=== PATIENT | female | born 1970 | race Caucasian/White ===

== ENCOUNTER → 2017-07-12 | Outpatient (CLI) | payer MEDICARE, OTHER ==
[~2017-07-12] MED LIST: Clomipramine HC50 MG PO; DIPATR PO; ERYT.5TO RIGHTEYE; ESZO2 PO; FLUV50 PO; Fluvoxamine Ma100 MG PO; HYDCOR2.5A PR; OMEP20ER PO; OMEPRAZOLE 20MG CAP; ONDA4ODT MM; RANI150 PO; TERB250 PO; TRAM50 PO
[2017-07-13 12:58] LABS: HPV Genotype 16 Not Detected (NOTDET); HPV Genotype 18 Not Detected (NOTDET)
[2017-07-15 12:30] LABS: HPV High Risk Other Not Detected (NOTDET)
== END ==
LOC: LAB 09:59
PROVIDERS: Registered Nurse Community Health
DX: Z12.4 Encounter for screening for malignant neoplasm of cervix (principal)
CPT/HCPCS: 87624; G0123

== ENCOUNTER 2018-01-24 21:04 | Emergency (ER) | payer MEDICARE ==
[~2018-01-24] VITALS: Ht 165.1 cm; Wt 59.0 kg
[~2018-01-24 21:04] MED LIST changes: -Clomipramine HC50 MG PO
[2018-01-24 21:43] LABS: BASOPHILS ABSOLUTE AUTO 0.03 K/mm3 (0.00-0.23); BASOPHILS PERCENT AUTO 0 % (0-2); EOSINOPHILS ABSOLUTE AUTO 0.07 K/mm3 (0.00-0.68); EOSINOPHILS PERCENT AUTO 1 % (0-6); Hematocrit 39.5 % (33.0-51.0); Hemoglobin 13.5 g/dL (11.5-16.0); IMMATURE GRAN ABSOLUTE AUTO 0.03 K/mm3 (0.00-0.10); IMMATURE GRAN PERCENT AUTO 0 % (0-1); LYMPHOCYTES ABSOLUTE AUTO 0.91 K/mm3 (0.84-5.20); LYMPHOCYTES PERCENT AUTO 10 % (21-46); MONOCYTES ABSOLUTE AUTO 1.16 K/mm3 (0.16-1.47); MONOCYTES PERCENT AUTO 13 % (4-13); Mean Corpuscular HGB 32.4 pg (26.0-34.0); Mean Corpuscular HGB Conc 34.2 g/dL (31.5-36.5); Mean Corpuscular Volume 95 fL (80-100); Mean Platelet Volume 10.6 fL (9.1-12.4); NEUTROPHILS ABSOLUTE AUTO 6.56 K/mm3 (1.96-9.15); NEUTROPHILS PERCENT AUTO 75 % (41-73); Platelet Count 267 K/mm3 (150-400); RDW Coefficient Variation 11.8 % (11.7-14.2); RDW Standard Deviation 41.1 fL (35.1-46.3); Red Blood Cell Count 4.17 M/mm3 (3.80-5.20); White Blood Cell Count 8.76 K/mm3 (4.00-11.30)
[2018-01-24 22:00] LABS: Alanine Aminotransfer (ALT/SGP 33 U/L (12-78); Albumin, Blood 3.3 g/dL (3.4-5.0); Albumin/Globulin Ratio 0.9 (0.8-1.8); Alk Phos 90 U/L (50-136); Anion Gap 9 mmol/L (6-16); Aspartate Aminotrans (AST/SGOT 26 U/L (12-37); Bilirubin, Total 0.3 mg/dL (0.1-1.0); Blood Urea Nitrogen 9 mg/dL (8-24); Bun/Creatinine Ratio 12.7 (12.0-20.0); CO2, Blood 24 mmol/L (21-32); Calcium, Blood 8.9 mg/dL (8.5-10.1); Chloride, Blood 103 mmol/L (98-108); Creatinine, Blood 0.71 mg/dL (0.40-1.00); Globulin, Blood 3.6 g/dL (2.2-4.0); Glomerular Filtration Rate >60 (60-); Glucose, Blood 95 mg/dL (70-99); Potassium, Blood 3.2 mmol/L (3.5-5.5); Sodium, Blood 136 mmol/L (136-145); Total Protein, Blood 6.9 g/dL (6.4-8.2)
[2018-01-24] MEDS ORDERED: Clomipramine HC50 MG PO (22:43)
[2018-01-24 23:57] LABS: Source, Urine Clean Catch
[2018-01-25 00:05] LABS: Bilirubin, Urine Neg (Neg); Blood, Urine Neg (Neg); Glucose Qualitative, Urine Neg (Neg); Ketones, Urine 1+ (Neg); Leukocyte Esterase, Urine 1+ (Neg); Nitrite, Urine Neg (Neg); Protein, Urine Neg (Neg); Urobilinogen, Urine NORM (Normal)
[2018-01-25 00:10] LABS: Appearance, Urine Clear (Clear); Bacteria Mod /hpf; Color, Urine Yellow (P-Yellow); Mucus Heavy (0-Heavy); Red Blood Cells, Urine 0-2 /hpf (0-2); Squamous Epithelial Cells Few /hpf (Few); White Blood Cells, Urine 0-2 /hpf (0-5)
[2018-01-25 00:11] LABS: Calcium Oxalate Crystals Many /hpf
== END 2018-01-25 00:50 | disposition home or self-care (01) ==
LOC: ER 21:04
PROVIDERS: Emergency Medicine
DX: R19.7 Diarrhea, unspecified (principal); F41.9 Anxiety disorder, unspecified; F17.210 Nicotine dependence, cigarettes, uncomplicated; Z88.7 Allergy status to serum and vaccine; Z91.010 Allergy to peanuts; Z91.018 Allergy to other foods; Z79.899 Other long term (current) drug therapy
CPT/HCPCS: 36415; 74022; 80053; 81001; 81025; 83690; 85025; 87086; 99283

== ENCOUNTER 2019-04-11 18:39 | Emergency (ER) | payer OTHER, MEDICARE ==
[~2019-04-11] VITALS: Ht 167.6 cm; Wt 58.1 kg
[~2019-04-11 18:39] MED LIST changes: +Clomipramine HC50 MG PO
[2019-04-11] MEDS ORDERED: [UNRECOGNIZED DRUG - REMARK] (20:25)
[2019-04-11] MEDS ORDERED: Fluvoxamine Ma100 MG PO (20:25)
== END 2019-04-11 21:41 | disposition home or self-care (01) ==
LOC: ER 18:39
DX: S52.231A Displaced oblique fracture of shaft of right ulna, initial encounter for closed fracture (principal); F41.9 Anxiety disorder, unspecified; F17.210 Nicotine dependence, cigarettes, uncomplicated; Z88.7 Allergy status to serum and vaccine; Z91.018 Allergy to other foods; Z79.899 Other long term (current) drug therapy; W01.0XXA Fall on same level from slipping, tripping and stumbling without subsequent striking against object, initial encounter
CPT/HCPCS: 29105; 73090; 99283-25

== ENCOUNTER → 2019-07-02 | Outpatient (CLI) | payer MEDICARE ==
[~2019-07-02] MED LIST changes: +[UNRECOGNIZED DRUG - REMARK]
[2019-07-06 21:05] LABS: ADENOVIRUS F 40/41 Not Detected (Not Detected); ASTROVIRUS Not Detected (Not Detected); C DIFFICILE TOXIN A/B Not Detected (Not Detected); CAMPYLOBACTER Not Detected (Not Detected); CRYPTOSPORIDIUM Not Detected (Not Detected); CYCLOSPORA CAYETANENSIS Not Detected (Not Detected); ENTAMOEBA HISTOLYTICA Not Detected (Not Detected); ENTEROAGGREGATIVE E COLI Not Detected (Not Detected); ENTEROPATHOGENIC E COLI Not Detected (Not Detected); ENTEROTOXIGENIC E COLI Not Detected (Not Detected); GIARDIA LAMBLIA Not Detected (Not Detected); NOROVIRUS GI/GII Not Detected (Not Detected); PLESIOMONAS SHIGELLOIDES Not Detected (Not Detected); ROTAVIRUS A Not Detected (Not Detected); SALMONELLA Not Detected (Not Detected); SAPOVIRUS Not Detected (Not Detected); SHIGA-TOXIN-PRODUCING E COLI Not Detected (Not Detected); SHIGELLA/ENTEROINVASIVE E COLI Not Detected (Not Detected); VIBRIO Not Detected (Not Detected); VIBRIO CHOLERAE Not Detected (Not Detected); YERSINIA ENTEROCOLITICA Not Detected (Not Detected)
== END | disposition home or self-care (01) ==
LOC: LAB SHORT 09:15 → LAB 09:15 → LAB FUT 06-15 11:25
PROVIDERS: Nurse Practitioner Family
DX: R10.9 Unspecified abdominal pain (principal); F10.20 Alcohol dependence, uncomplicated
CPT/HCPCS: 0097U; 87177; 87209

== ENCOUNTER 2020-07-13 22:14 | Emergency (ER) | payer MEDICARE ==
[~2020-07-13] VITALS: Ht 165.1 cm; Wt 53.5 kg
[2020-07-13 22:44] LABS: Source, Urine Voided
[2020-07-13 22:52] LABS: Appearance, Urine Clear (Clear); Bilirubin, Urine Neg (Neg); Blood, Urine Neg (Neg); Color, Urine Pale Yellow (P-Yellow); Glucose Qualitative, Urine Neg (Neg); Ketones, Urine Neg (Neg); Leukocyte Esterase, Urine Neg (Neg); Nitrite, Urine Neg (Neg); Protein, Urine Neg (Neg); Urobilinogen, Urine NORM (Normal)
[2020-07-13 23:02] LABS: U Amphetamine Screen Not Detected; U Barbituate Screen Not Detected; U Benzodiazapine Screen Not Detected; U Buprenorphine Screen Not Detected; U Cannabinoids Screen DETECTED; U Cocaine Screen Not Detected; U Methadone Screen Not Detected; U Methamphetamine Screen Not Detected; U Opiates Screen Not Detected; U Oxycodone Screen Not Detected; U Phencyclidine Screen Not Detected; U Propoxyphene Screen Not Detected
[2020-07-13 23:08] LABS: BASOPHILS ABSOLUTE AUTO 0.05 K/mm3 (0.00-0.23); BASOPHILS PERCENT AUTO 1 % (0-2); EOSINOPHILS ABSOLUTE AUTO 0.08 K/mm3 (0.00-0.68); EOSINOPHILS PERCENT AUTO 1 % (0-6); Hematocrit 50.1 % (33.0-51.0); Hemoglobin 16.3 g/dL (11.5-16.0); IMMATURE GRAN ABSOLUTE AUTO 0.01 K/mm3 (0.00-0.10); IMMATURE GRAN PERCENT AUTO 0 % (0-1); LYMPHOCYTES ABSOLUTE AUTO 2.29 K/mm3 (0.84-5.20); LYMPHOCYTES PERCENT AUTO 39 % (21-46); MONOCYTES ABSOLUTE AUTO 0.52 K/mm3 (0.16-1.47); MONOCYTES PERCENT AUTO 9 % (4-13); Mean Corpuscular HGB 32.1 pg (26.0-34.0); Mean Corpuscular HGB Conc 32.5 g/dL (31.5-36.5); Mean Corpuscular Volume 99 fL (80-100); Mean Platelet Volume 10.5 fL (9.1-12.4); NEUTROPHILS ABSOLUTE AUTO 2.99 K/mm3 (1.96-9.15); NEUTROPHILS PERCENT AUTO 50 % (41-73); Platelet Count 260 K/mm3 (150-400); RDW Coefficient Variation 12.6 % (11.7-14.2); RDW Standard Deviation 46.1 fL (35.1-46.3); Red Blood Cell Count 5.07 M/mm3 (3.80-5.20); White Blood Cell Count 5.94 K/mm3 (4.00-11.30)
[2020-07-13 23:33] LABS: Alanine Aminotransfer (ALT/SGP 31 U/L (12-78); Albumin, Blood 4.1 g/dL (3.4-5.0); Albumin/Globulin Ratio 1.1 (0.8-1.8); Alk Phos 87 U/L (50-136); Anion Gap 7 mmol/L (6-16); Aspartate Aminotrans (AST/SGOT 41 U/L (12-37); Bilirubin, Total 0.2 mg/dL (0.1-1.0); Blood Urea Nitrogen 4 mg/dL (8-24); Bun/Creatinine Ratio 6.7 (12.0-20.0); CO2, Blood 28 mmol/L (21-32); Calcium, Blood 8.6 mg/dL (8.5-10.1); Chloride, Blood 109 mmol/L (98-108); Creatinine, Blood 0.59 mg/dL (0.40-1.00); Ethanol (Alcohol), Blood, Med 274 mg/dL; Globulin, Blood 3.6 g/dL (2.2-4.0); Glomerular Filtration Rate >60 (60-); Glucose, Blood 87 mg/dL (70-99); Potassium, Blood 3.7 mmol/L (3.5-5.5); Salicylate 5.2 mg/dL (2.8-20.0); Sodium, Blood 144 mmol/L (136-145); Total Protein, Blood 7.7 g/dL (6.4-8.2)
[2020-07-13 23:38] LABS: Acetaminophen, Random <2.0 ug/mL (10.0-30.0)
== END 2020-07-14 01:00 | disposition home or self-care (01) ==
LOC: ER 22:14
PROVIDERS: Emergency Medicine
DX: S51.811A Laceration without foreign body of right forearm, initial encounter (principal); F41.9 Anxiety disorder, unspecified; F42.9 Obsessive-compulsive disorder, unspecified; F17.210 Nicotine dependence, cigarettes, uncomplicated; Z91.018 Allergy to other foods; Z91.010 Allergy to peanuts; Z79.899 Other long term (current) drug therapy; X78.9XXA Intentional self-harm by unspecified sharp object, initial encounter
CPT/HCPCS: 36415; 80053; 81003; 84443; 85025; 99284; G0480; Q3014

== ENCOUNTER 2022-09-20 09:01 | Emergency (ER) | payer MEDICARE ==
[~2022-09-20] VITALS: Ht 165.1 cm; Wt 49.9 kg
[2022-09-20 10:04] LABS: BASOPHILS ABSOLUTE AUTO 0.03 K/mm3 (0.00-0.23); BASOPHILS PERCENT AUTO 1 % (0-2); EOSINOPHILS ABSOLUTE AUTO 0.04 K/mm3 (0.00-0.68); EOSINOPHILS PERCENT AUTO 1 % (0-6); Hematocrit 38.4 % (33.0-51.0); Hemoglobin 13.2 g/dL (11.5-16.0); IMMATURE GRAN ABSOLUTE AUTO 0.02 K/mm3 (0.00-0.10); IMMATURE GRAN PERCENT AUTO 0 % (0-1); LYMPHOCYTES ABSOLUTE AUTO 1.11 K/mm3 (0.84-5.20); LYMPHOCYTES PERCENT AUTO 23 % (21-46); MONOCYTES ABSOLUTE AUTO 0.47 K/mm3 (0.16-1.47); MONOCYTES PERCENT AUTO 10 % (4-13); Mean Corpuscular HGB 33.3 pg (26.0-34.0); Mean Corpuscular HGB Conc 34.4 g/dL (31.5-36.5); Mean Corpuscular Volume 97 fL (80-100); Mean Platelet Volume 9.6 fL (9.1-12.4); NEUTROPHILS PERCENT AUTO 66 % (41-73); Platelet Count 157 K/mm3 (150-400); RDW Coefficient Variation 15.2 % (11.7-14.2); RDW Standard Deviation 53.9 fL (35.1-46.3); Red Blood Cell Count 3.96 M/mm3 (3.80-5.20); White Blood Cell Count 4.87 K/mm3 (4.00-11.30)
[2022-09-20 10:23] LABS: Albumin/Globulin Ratio 1.2 (0.8-1.8); Bilirubin, Total 0.4 mg/dL (0.1-1.0); Bun/Creatinine Ratio 10.7 (12.0-20.0); Calcium, Blood 8.7 mg/dL (8.5-10.1); Creatinine, Blood 0.56 mg/dL (0.40-1.00); Globulin, Blood 3.3 g/dL (2.2-4.0); Magnesium, Blood 2.3 mg/dL (1.6-2.4); Potassium, Blood 3.7 mmol/L (3.5-5.5); Total Protein, Blood 7.3 g/dL (6.4-8.2)
[2022-09-20 10:34] LABS: U Amphetamine Screen Not Detected; U Barbituate Screen Not Detected; U Benzodiazapine Screen Not Detected; U Buprenorphine Screen Not Detected; U Cannabinoids Screen DETECTED; U Cocaine Screen Not Detected; U Methadone Screen Not Detected; U Methamphetamine Screen Not Detected; U Opiates Screen Not Detected; U Oxycodone Screen Not Detected; U Phencyclidine Screen Not Detected; U Propoxyphene Screen Not Detected
[2022-09-20] MEDS ORDERED: Xanax0.5 MG PO ×2 (11:33→11:34)
== END 2022-09-20 12:17 | disposition home or self-care (01) ==
LOC: ER 09:01
PROVIDERS: Physician Assistant
DX: F41.0 Panic disorder [episodic paroxysmal anxiety] (principal); F95.2 Tourette's disorder; F17.210 Nicotine dependence, cigarettes, uncomplicated; Z88.7 Allergy status to serum and vaccine; Z88.8 Allergy status to other drugs, medicaments and biological substances; Z91.018 Allergy to other foods; Z91.010 Allergy to peanuts; Z79.899 Other long term (current) drug therapy
CPT/HCPCS: 36415; 80053; 82550; 83735; 85025; A9270

== ENCOUNTER 2022-12-08 01:23 | Emergency (ER) | payer MEDICARE, OTHER ==
[~2022-12-08] VITALS: Ht 165.1 cm; Wt 49.9 kg
[~2022-12-08 01:23] MED LIST changes: +Xanax0.5 MG PO
[2022-12-08 01:31] VITALS: BP 123/98
== END 2022-12-08 01:42 | disposition home or self-care (01) ==
LOC: ER 01:23
DX: F10.929 Alcohol use, unspecified with intoxication, unspecified (principal); F17.210 Nicotine dependence, cigarettes, uncomplicated; Z91.010 Allergy to peanuts; Z88.7 Allergy status to serum and vaccine; Z91.048 Other nonmedicinal substance allergy status; Z88.8 Allergy status to other drugs, medicaments and biological substances
CPT/HCPCS: 99283

== ENCOUNTER 2023-04-10 00:02 | Observation (INO) | payer MEDICARE, OTHER ==
[~2023-04-10] VITALS: Ht 162.6 cm; Wt 59.0 kg
[2023-04-10 00:38] VITALS: BP 96/50
[2023-04-10 02:27] LABS: BASOPHILS ABSOLUTE AUTO 0.05 K/mm3 (0.00-0.23); BASOPHILS PERCENT AUTO 1 % (0-2); EOSINOPHILS ABSOLUTE AUTO 0.06 K/mm3 (0.00-0.68); EOSINOPHILS PERCENT AUTO 1 % (0-6); Hematocrit 39.6 % (33.0-51.0); Hemoglobin 13.9 g/dL (11.5-16.0); IMMATURE GRAN ABSOLUTE AUTO 0.01 K/mm3 (0.00-0.10); IMMATURE GRAN PERCENT AUTO 0 % (0-1); LYMPHOCYTES ABSOLUTE AUTO 2.64 K/mm3 (0.84-5.20); LYMPHOCYTES PERCENT AUTO 52 % (21-46); MONOCYTES ABSOLUTE AUTO 0.42 K/mm3 (0.16-1.47); MONOCYTES PERCENT AUTO 8 % (4-13); Mean Corpuscular HGB 34.7 pg (26.0-34.0); Mean Corpuscular HGB Conc 35.1 g/dL (31.5-36.5); Mean Corpuscular Volume 99 fL (80-100); Mean Platelet Volume 10.9 fL (9.1-12.4); NEUTROPHILS ABSOLUTE AUTO 1.86 K/mm3 (1.96-9.15); NEUTROPHILS PERCENT AUTO 37 % (41-73); Platelet Count 171 K/mm3 (150-400); RDW Coefficient Variation 13.9 % (11.7-14.2); RDW Standard Deviation 51.1 fL (35.1-46.3); Red Blood Cell Count 4.01 M/mm3 (3.80-5.20); White Blood Cell Count 5.04 K/mm3 (4.00-11.30)
[2023-04-10 02:39] LABS: Salicylate 2.8 mg/dL (2.8-20.0)
[2023-04-10 03:05] LABS: Alanine Aminotransfer (ALT/SGP 88 U/L (12-78); Albumin, Blood 3.5 g/dL (3.4-5.0); Albumin/Globulin Ratio 1.1 (0.8-1.8); Alk Phos 118 U/L (50-136); Anion Gap 10 mmol/L (6-16); Aspartate Aminotrans (AST/SGOT 240 U/L (12-37); Bilirubin, Total 0.3 mg/dL (0.1-1.0); Blood Urea Nitrogen 4 mg/dL (8-24); Bun/Creatinine Ratio 7.1 (12.0-20.0); CO2, Blood 24 mmol/L (21-32); Calcium, Blood 8.4 mg/dL (8.5-10.1); Chloride, Blood 110 mmol/L (98-108); Creatinine, Blood 0.57 mg/dL (0.40-1.00); Ethanol (Alcohol), Blood, Med 428 mg/dL; Globulin, Blood 3.3 g/dL (2.2-4.0); Glomerular Filtration Rate 108 (60-); Glucose, Blood 97 mg/dL (70-99); Potassium, Blood 3.5 mmol/L (3.5-5.5); Sodium, Blood 144 mmol/L (136-145); Total Protein, Blood 6.8 g/dL (6.4-8.2)
[2023-04-10 03:06] LABS: Acetaminophen, Random <2.0 ug/mL (10.0-30.0)
== END 2023-04-10 13:00 | disposition home or self-care (01) ==
LOC: ER 00:02 → EOR 00:03
PROVIDERS: Student in an Organized Health Care Education/Training Program; ADMIT Emergency Medicine
DX: F32.A Depression, unspecified (principal); F10.129 Alcohol abuse with intoxication, unspecified; Y90.8 Blood alcohol level of 240 mg/100 ml or more; R45.88 Nonsuicidal self-harm; F95.2 Tourette's disorder; F42.9 Obsessive-compulsive disorder, unspecified; F17.210 Nicotine dependence, cigarettes, uncomplicated; S51.811A Laceration without foreign body of right forearm, initial encounter; S41.111A Laceration without foreign body of right upper arm, initial encounter; X78.9XXA Intentional self-harm by unspecified sharp object, initial encounter
CPT/HCPCS: 80053; 85025; 96372; 99285; 99285-25; A9270; G0378; G0480; J2060; Q3014

== ENCOUNTER 2023-04-10 20:24 | Observation (INO) | payer MEDICARE, OTHER ==
[~2023-04-10] VITALS: Ht 165.1 cm; Wt 53.5 kg
[2023-04-10 20:24] VITALS: BP 110/71
[2023-04-10 22:31] LABS: BASOPHILS ABSOLUTE AUTO 0.05 K/mm3 (0.00-0.23); BASOPHILS PERCENT AUTO 1 % (0-2); EOSINOPHILS ABSOLUTE AUTO 0.02 K/mm3 (0.00-0.68); EOSINOPHILS PERCENT AUTO 0 % (0-6); Hematocrit 37.3 % (33.0-51.0); Hemoglobin 13.3 g/dL (11.5-16.0); IMMATURE GRAN ABSOLUTE AUTO 0.01 K/mm3 (0.00-0.10); IMMATURE GRAN PERCENT AUTO 0 % (0-1); LYMPHOCYTES ABSOLUTE AUTO 1.58 K/mm3 (0.84-5.20); LYMPHOCYTES PERCENT AUTO 34 % (21-46); MONOCYTES ABSOLUTE AUTO 0.32 K/mm3 (0.16-1.47); MONOCYTES PERCENT AUTO 7 % (4-13); Mean Corpuscular HGB 34.9 pg (26.0-34.0); Mean Corpuscular HGB Conc 35.7 g/dL (31.5-36.5); Mean Corpuscular Volume 98 fL (80-100); Mean Platelet Volume 10.1 fL (9.1-12.4); NEUTROPHILS ABSOLUTE AUTO 2.66 K/mm3 (1.96-9.15); NEUTROPHILS PERCENT AUTO 57 % (41-73); Platelet Count 159 K/mm3 (150-400); RDW Coefficient Variation 13.7 % (11.7-14.2); RDW Standard Deviation 49.7 fL (35.1-46.3); Red Blood Cell Count 3.81 M/mm3 (3.80-5.20); White Blood Cell Count 4.64 K/mm3 (4.00-11.30)
[2023-04-10 22:49] LABS: Acetaminophen, Random <2.0 ug/mL (10.0-30.0); Alanine Aminotransfer (ALT/SGP 71 U/L (12-78); Albumin, Blood 3.4 g/dL (3.4-5.0); Albumin/Globulin Ratio 1.1 (0.8-1.8); Alk Phos 114 U/L (50-136); Anion Gap 9 mmol/L (6-16); Aspartate Aminotrans (AST/SGOT 149 U/L (12-37); Bilirubin, Total 0.5 mg/dL (0.1-1.0); Blood Urea Nitrogen 3 mg/dL (8-24); Bun/Creatinine Ratio 6.3 (12.0-20.0); CO2, Blood 27 mmol/L (21-32); Calcium, Blood 8.7 mg/dL (8.5-10.1); Chloride, Blood 105 mmol/L (98-108); Creatinine, Blood 0.47 mg/dL (0.40-1.00); Ethanol (Alcohol), Blood, Med 280 mg/dL; Globulin, Blood 3.2 g/dL (2.2-4.0); Glomerular Filtration Rate 113 (60-); Glucose, Blood 100 mg/dL (70-99); Potassium, Blood 3.6 mmol/L (3.5-5.5); Salicylate 2.1 mg/dL (2.8-20.0); Sodium, Blood 141 mmol/L (136-145); Total Protein, Blood 6.6 g/dL (6.4-8.2)
== END 2023-04-11 01:35 | disposition home or self-care (01) ==
LOC: ER 20:24 → EOR 20:25
PROVIDERS: ADMIT Student in an Organized Health Care Education/Training Program
DX: R45.88 Nonsuicidal self-harm (principal); F95.2 Tourette's disorder; F42.9 Obsessive-compulsive disorder, unspecified; F17.210 Nicotine dependence, cigarettes, uncomplicated; F41.9 Anxiety disorder, unspecified; S51.811A Laceration without foreign body of right forearm, initial encounter; S41.111A Laceration without foreign body of right upper arm, initial encounter; X78.9XXA Intentional self-harm by unspecified sharp object, initial encounter
CPT/HCPCS: 80053; 85025; 99285; A9270; G0378; G0480; Q3014

== ENCOUNTER 2023-08-02 23:28 | Observation (INO) | payer MEDICARE, OTHER ==
[~2023-08-02] VITALS: Ht 165.1 cm; Wt 54.4 kg
[2023-08-03 01:25] LABS: Hematocrit 33.8 % (33.0-51.0); Hemoglobin 11.5 g/dL (11.5-16.0); Mean Corpuscular HGB 37.5 pg (26.0-34.0); Mean Corpuscular Volume 110 fL (80-100); Platelet Count 161 K/mm3 (150-400); RDW Coefficient Variation 13.8 % (11.7-14.2); RDW Standard Deviation 56.8 fL (35.1-46.3); Red Blood Cell Count 3.07 M/mm3 (3.80-5.20); White Blood Cell Count 3.06 K/mm3 (4.00-11.30)
[2023-08-03 01:45] LABS: BAND PERCENT MAN 2 % (0-8); BASOPHILS PERCENT MAN 0 % (0-2); EOSINOPHILS ABSOLUTE MAN 0.06 K/mm3 (0.00-0.68); EOSINOPHILS PERCENT MAN 2 % (0-6); LYMPHOCYTES % ATYPICAL MANUAL 1 % (0-0); LYMPHOCYTES ABSOLUTE MAN 1.43 K/mm3 (0.84-5.20); LYMPHOCYTES PERCENT MAN 46 % (21-46); MONOCYTES PERCENT MAN 10 % (4-13); NEUTROPHILS ABSOLUTE MAN 1.25 K/mm3 (1.96-9.15); SEG NEUTROPHILS PERCENT MAN 39 % (41-73); TOTAL CELLS COUNTED 100
[2023-08-03 01:47] LABS: U Amphetamine Screen Not Detected; U Barbituate Screen Not Detected; U Benzodiazapine Screen Not Detected; U Buprenorphine Screen Not Detected; U Cannabinoids Screen Not Detected; U Cocaine Screen Not Detected; U Methadone Screen Not Detected; U Methamphetamine Screen Not Detected; U Opiates Screen Not Detected; U Oxycodone Screen Not Detected; U Phencyclidine Screen Not Detected
[2023-08-03 01:56] LABS: Acetaminophen, Random <2.0 ug/mL (10.0-30.0); Salicylate 2.8 mg/dL (2.8-20.0)
[2023-08-03 01:58] LABS: Alanine Aminotransfer (ALT/SGP 62 U/L (12-78); Albumin, Blood 3.1 g/dL (3.4-5.0); Alk Phos 106 U/L (50-136); Anion Gap 2 mmol/L (6-16); Aspartate Aminotrans (AST/SGOT 200 U/L (12-37); Bilirubin, Total 0.2 mg/dL (0.1-1.0); Blood Urea Nitrogen 5 mg/dL (8-24); CO2, Blood 34 mmol/L (21-32); Calcium, Blood 8.3 mg/dL (8.5-10.1); Chloride, Blood 112 mmol/L (98-108); Ethanol (Alcohol), Blood, Med 419 mg/dL; Globulin, Blood 3.2 g/dL (2.2-4.0); Glomerular Filtration Rate 111 (60-); Glucose, Blood 85 mg/dL (70-99); Sodium, Blood 148 mmol/L (136-145); Total Protein, Blood 6.3 g/dL (6.4-8.2)
[2023-08-03 12:43] VITALS: BP 114/75
== END 2023-08-03 12:58 | disposition home or self-care (01) ==
LOC: ER 23:28 → EOR 23:29
PROVIDERS: Emergency Medicine; ADMIT Student in an Organized Health Care Education/Training Program
DX: F10.229 Alcohol dependence with intoxication, unspecified (principal); Y90.8 Blood alcohol level of 240 mg/100 ml or more; F17.210 Nicotine dependence, cigarettes, uncomplicated
CPT/HCPCS: 80053; 81025; 85025; 99285; A9270; G0378; G0480

== ENCOUNTER 2024-04-05 13:44 | Emergency (ER) | payer MEDICARE ==
[~2024-04-05] VITALS: Ht 165.1 cm; Wt 56.2 kg
[~2024-04-05 13:44] MED LIST changes: -FLUVOXAMINE MA100 M3 PO; -LOPERAMIDE212 PO
[2024-04-05 14:31] LABS: BASOPHILS ABSOLUTE AUTO 0.07 K/mm3 (0.00-0.23); BASOPHILS PERCENT AUTO 1 % (0-2); EOSINOPHILS ABSOLUTE AUTO 0.03 K/mm3 (0.00-0.68); EOSINOPHILS PERCENT AUTO 0 % (0-6); Hematocrit 36.4 % (33.0-51.0); Hemoglobin 12.4 g/dL (11.5-16.0); IMMATURE GRAN ABSOLUTE AUTO 0.02 K/mm3 (0.00-0.10); IMMATURE GRAN PERCENT AUTO 0 % (0-1); LYMPHOCYTES ABSOLUTE AUTO 1.07 K/mm3 (0.84-5.20); LYMPHOCYTES PERCENT AUTO 16 % (21-46); MONOCYTES ABSOLUTE AUTO 0.61 K/mm3 (0.16-1.47); MONOCYTES PERCENT AUTO 9 % (4-13); Mean Corpuscular HGB 36.4 pg (26.0-34.0); Mean Corpuscular HGB Conc 34.1 g/dL (31.5-36.5); Mean Corpuscular Volume 107 fL (80-100); Mean Platelet Volume 10.6 fL (9.1-12.4); NEUTROPHILS ABSOLUTE AUTO 4.89 K/mm3 (1.96-9.15); NEUTROPHILS PERCENT AUTO 73 % (41-73); Platelet Count 193 K/mm3 (150-400); RDW Coefficient Variation 13.6 % (11.7-14.2); RDW Standard Deviation 54.1 fL (35.1-46.3); Red Blood Cell Count 3.41 M/mm3 (3.80-5.20); White Blood Cell Count 6.69 K/mm3 (4.00-11.30)
[2024-04-05 14:46] LABS: Albumin, Blood 3.6 g/dL (3.4-5.0); Albumin/Globulin Ratio 1.2 (0.8-1.8); Bilirubin, Total 0.6 mg/dL (0.1-1.0); Creatinine, Blood 0.43 mg/dL (0.40-1.00); Globulin, Blood 3.1 g/dL (2.2-4.0); Potassium, Blood 4.2 mmol/L (3.5-5.5); Total Protein, Blood 6.7 g/dL (6.4-8.2)
[2024-04-05] MEDS ORDERED: Thiamine HCl 100 MG in NS 50 ML IV ONE (16:00)
[2024-04-05] MEDS ORDERED: Folic Acid 1 MG TAB PO ONE (16:00)
[2024-04-05] MEDS ORDERED: FLUVOXAMINE MA100 M3 PO (16:27)
[2024-04-05] MEDS ORDERED: LOPERAMIDE212 PO (16:27)
[2024-04-05 18:00] VITALS: BP 101/66
[2024-04-07 09:07] LABS: HEPATITIS B SURFACE ANTIBODY <3.10 IU/L; HEPATITIS B SURFACE ANTIGEN Negative (Negative); HEPATITIS BE ANTIBODY Negative (Negative); HEPATITIS BE ANTIGEN Negative (Negative)
== END 2024-04-05 19:06 | disposition home or self-care (01) ==
LOC: ER 13:44
PROVIDERS: Emergency Medicine
DX: F10.90 Alcohol use, unspecified, uncomplicated (principal); K76.0 Fatty (change of) liver, not elsewhere classified; R74.01 Elevation of levels of liver transaminase levels; F17.210 Nicotine dependence, cigarettes, uncomplicated; Z79.899 Other long term (current) drug therapy
CPT/HCPCS: 71046; 74177; 80053; 82140; 83690; 83880; 84484; 85025; 93005; 93010; 96365-59; 99284-25; A9270; G0480; J3411; Q9967

== ENCOUNTER → 2024-04-05 | Outpatient (CLI) | payer MEDICARE, OTHER ==
[~2024-04-05] MED LIST changes: +FLUVOXAMINE MA100 M3 PO; +LOPERAMIDE212 PO
[2024-04-05 12:10] LABS: BASOPHILS ABSOLUTE AUTO 0.06 K/mm3 (0.00-0.23); BASOPHILS PERCENT AUTO 1 % (0-2); EOSINOPHILS ABSOLUTE AUTO 0.04 K/mm3 (0.00-0.68); EOSINOPHILS PERCENT AUTO 1 % (0-6); Hematocrit 39.7 % (33.0-51.0); Hemoglobin 13.7 g/dL (11.5-16.0); IMMATURE GRAN ABSOLUTE AUTO 0.02 K/mm3 (0.00-0.10); IMMATURE GRAN PERCENT AUTO 0 % (0-1); LYMPHOCYTES ABSOLUTE AUTO 0.77 K/mm3 (0.84-5.20); LYMPHOCYTES PERCENT AUTO 14 % (21-46); MONOCYTES ABSOLUTE AUTO 0.43 K/mm3 (0.16-1.47); MONOCYTES PERCENT AUTO 8 % (4-13); Mean Corpuscular HGB 36.6 pg (26.0-34.0); Mean Corpuscular HGB Conc 34.5 g/dL (31.5-36.5); Mean Corpuscular Volume 106 fL (80-100); Mean Platelet Volume 10.4 fL (9.1-12.4); NEUTROPHILS ABSOLUTE AUTO 4.28 K/mm3 (1.96-9.15); NEUTROPHILS PERCENT AUTO 76 % (41-73); Platelet Count 217 K/mm3 (150-400); RDW Coefficient Variation 13.5 % (11.7-14.2); RDW Standard Deviation 53.2 fL (35.1-46.3); Red Blood Cell Count 3.74 M/mm3 (3.80-5.20)
[2024-04-05 12:21] LABS: Albumin, Blood 4.1 g/dL (3.4-5.0); Albumin/Globulin Ratio 1.1 (0.8-1.8); Bilirubin, Total 0.6 mg/dL (0.1-1.0); Bun/Creatinine Ratio 4.4 (12.0-20.0); Calcium, Blood 9.6 mg/dL (8.5-10.1); Creatinine, Blood 0.68 mg/dL (0.40-1.00); Globulin, Blood 3.8 g/dL (2.2-4.0); Potassium, Blood 3.6 mmol/L (3.5-5.5); Total Protein, Blood 7.9 g/dL (6.4-8.2)
== END | disposition home or self-care (01) ==
LOC: LAB 12:03 → LAB SHORT 12:03
PROVIDERS: Physician Assistant Surgical
DX: R07.9 Chest pain, unspecified (principal)
CPT/HCPCS: 80053; 83690; 84484; 85025; 85379

== ENCOUNTER 2024-08-28 12:47 | Emergency (ER) | payer MEDICARE ==
[~2024-08-28] VITALS: Ht 165.1 cm; Wt 56.2 kg
[~2024-08-28 12:47] MED LIST changes: +FLUVOXAMINE MA100 M3 PO; +LOPERAMIDE212 PO
[2024-08-28] MEDS ORDERED: NS 1,000 ML IV SCH ×2 (13:15→15:55)
[2024-08-28] MEDS ORDERED: Ondansetron HCl 2 MG / ML 2ML Vial IV ONE (13:15)
[2024-08-28] MEDS ORDERED: LORazepam 2 MG/ML 1ML Injection IV ONE (13:20)
[2024-08-28 13:41] LABS: BASOPHILS ABSOLUTE AUTO 0.03 K/mm3 (0.00-0.23); BASOPHILS PERCENT AUTO 1 % (0-2); EOSINOPHILS ABSOLUTE AUTO 0.04 K/mm3 (0.00-0.68); EOSINOPHILS PERCENT AUTO 1 % (0-6); Hematocrit 42.1 % (33.0-51.0); Hemoglobin 14.9 g/dL (11.5-16.0); IMMATURE GRAN ABSOLUTE AUTO 0.02 K/mm3 (0.00-0.10); IMMATURE GRAN PERCENT AUTO 1 % (0-1); LYMPHOCYTES ABSOLUTE AUTO 1.12 K/mm3 (0.84-5.20); LYMPHOCYTES PERCENT AUTO 32 % (21-46); MONOCYTES ABSOLUTE AUTO 0.38 K/mm3 (0.16-1.47); MONOCYTES PERCENT AUTO 11 % (4-13); Mean Corpuscular HGB 36.4 pg (26.0-34.0); Mean Corpuscular HGB Conc 35.4 g/dL (31.5-36.5); Mean Corpuscular Volume 103 fL (80-100); Mean Platelet Volume 10.5 fL (9.1-12.4); NEUTROPHILS ABSOLUTE AUTO 1.91 K/mm3 (1.96-9.15); NEUTROPHILS PERCENT AUTO 55 % (41-73); Platelet Count 122 K/mm3 (150-400); RDW Coefficient Variation 17.9 % (11.7-14.2); RDW Standard Deviation 69.2 fL (35.1-46.3); Red Blood Cell Count 4.09 M/mm3 (3.80-5.20)
[2024-08-28 13:58] LABS: Albumin, Blood 3.1 g/dL (3.4-5.0); Bun/Creatinine Ratio 11.1 (12.0-20.0); Calcium, Blood 8.4 mg/dL (8.5-10.1); Creatinine, Blood 0.36 mg/dL (0.40-1.00); Magnesium, Blood 1.7 mg/dL (1.6-2.4); Potassium, Blood 3.7 mmol/L (3.5-5.5); Total Protein, Blood 6.1 g/dL (6.4-8.2)
[2024-08-28 16:30] LABS: Source, Urine Voided
[2024-08-28 16:34] LABS: Appearance, Urine Clear (Clear); Bilirubin, Urine Neg (Neg); Blood, Urine Neg (Neg); Color, Urine Yellow (P-Yellow); Glucose Qualitative, Urine Neg (Neg); Ketones, Urine Neg (Neg); Leukocyte Esterase, Urine Neg (Neg); Nitrite, Urine Neg (Neg); Protein, Urine Neg (Neg); Specific Gravity, Urine 1.015 (1.003-1.022); Urobilinogen, Urine NORM (Normal)
[2024-08-28 17:20] VITALS: BP 113/79
== END 2024-08-28 17:35 | disposition home or self-care (01) ==
LOC: ER 12:47
PROVIDERS: Emergency Medicine
DX: R53.1 Weakness (principal); F17.210 Nicotine dependence, cigarettes, uncomplicated; Z79.899 Other long term (current) drug therapy
CPT/HCPCS: 80053; 81003; 83690; 83735; 85025; 93005; 93010; 96361; 96374; 99284-25; J2060; J2405; J7030

== ENCOUNTER 2024-08-31 13:57 | Emergency (ER) | payer MEDICARE ==
[~2024-08-31] VITALS: Ht 165.1 cm; Wt 56.7 kg
[2024-08-31] MEDS ORDERED: NS 1,000 ML IV SCH (14:15)
[2024-08-31] MEDS ORDERED: Ondansetron HCl 2 MG / ML 2ML Vial IV ONE (14:15)
[2024-08-31] MEDS ORDERED: Folic Acid 1 MG TAB PO ONE (14:15)
[2024-08-31] MEDS ORDERED: Thiamine HCl 100 MG Tab PO ONE (14:15)
[2024-08-31] MEDS ORDERED: LORazepam 2 MG/ML 1ML Injection IV ONE (14:15)
[2024-08-31 14:46] LABS: BASOPHILS ABSOLUTE AUTO 0.03 K/mm3 (0.00-0.23); BASOPHILS PERCENT AUTO 1 % (0-2); EOSINOPHILS ABSOLUTE AUTO 0.03 K/mm3 (0.00-0.68); EOSINOPHILS PERCENT AUTO 1 % (0-6); Hematocrit 37.4 % (33.0-51.0); Hemoglobin 13.3 g/dL (11.5-16.0); IMMATURE GRAN ABSOLUTE AUTO 0.02 K/mm3 (0.00-0.10); IMMATURE GRAN PERCENT AUTO 0 % (0-1); LYMPHOCYTES ABSOLUTE AUTO 0.48 K/mm3 (0.84-5.20); LYMPHOCYTES PERCENT AUTO 8 % (21-46); MONOCYTES ABSOLUTE AUTO 0.51 K/mm3 (0.16-1.47); MONOCYTES PERCENT AUTO 8 % (4-13); Mean Corpuscular HGB 37.4 pg (26.0-34.0); Mean Corpuscular HGB Conc 35.6 g/dL (31.5-36.5); Mean Corpuscular Volume 105 fL (80-100); NEUTROPHILS ABSOLUTE AUTO 5.12 K/mm3 (1.96-9.15); NEUTROPHILS PERCENT AUTO 83 % (41-73); Platelet Count 95 K/mm3 (150-400); RDW Coefficient Variation 17.2 % (11.7-14.2); Red Blood Cell Count 3.56 M/mm3 (3.80-5.20); White Blood Cell Count 6.19 K/mm3 (4.00-11.30)
[2024-08-31 15:15] LABS: Albumin, Blood 2.9 g/dL (3.4-5.0); Bilirubin, Total 2.6 mg/dL (0.1-1.0); Bun/Creatinine Ratio 12.2 (12.0-20.0); Calcium, Blood 8.4 mg/dL (8.5-10.1); Creatinine, Blood 0.41 mg/dL (0.40-1.00); Globulin, Blood 2.9 g/dL (2.2-4.0); Magnesium, Blood 1.4 mg/dL (1.6-2.4); Potassium, Blood 3.4 mmol/L (3.5-5.5); Total Protein, Blood 5.8 g/dL (6.4-8.2)
[2024-08-31] MEDS ORDERED: Potassium Chloride 20 MEQ TabCR PO ONE (19:35)
[2024-08-31] MEDS ORDERED: Magnesium Oxide 400 MG Tab PO ONE (19:35)
[2024-08-31] MEDS ORDERED: ONDA4 PO (19:36)
[2024-08-31 19:37] VITALS: BP 130/76
== END 2024-08-31 20:08 | disposition home or self-care (01) ==
LOC: ER 13:57
PROVIDERS: Emergency Medicine
DX: F10.239 Alcohol dependence with withdrawal, unspecified (principal); E87.6 Hypokalemia; E83.42 Hypomagnesemia; E86.0 Dehydration; F17.210 Nicotine dependence, cigarettes, uncomplicated; Z79.899 Other long term (current) drug therapy
CPT/HCPCS: 80053; 80320; 83690; 83735; 85025; 96361; 96374; 96375; 99284-25; A9270; J2060; J2405; J7030

== ENCOUNTER 2024-10-12 00:37 | Emergency (ER) | payer MEDICARE ==
[~2024-10-12] VITALS: Ht 165.1 cm; Wt 56.2 kg
[~2024-10-12 00:37] MED LIST changes: +ONDA4 PO
[2024-10-12] MEDS ORDERED: NS 1,000 ML IV SCH (02:05)
[2024-10-12] MEDS ORDERED: Ondansetron HCl 2 MG / ML 2ML Vial IV ONE ×2 (02:05→03:00)
[2024-10-12 02:22] LABS: BASOPHILS ABSOLUTE AUTO 0.04 K/mm3 (0.00-0.23); BASOPHILS PERCENT AUTO 1 % (0-2); EOSINOPHILS ABSOLUTE AUTO 0.03 K/mm3 (0.00-0.68); EOSINOPHILS PERCENT AUTO 1 % (0-6); Hematocrit 28.1 % (33.0-51.0); Hemoglobin 9.9 g/dL (11.5-16.0); IMMATURE GRAN ABSOLUTE AUTO 0.01 K/mm3 (0.00-0.10); IMMATURE GRAN PERCENT AUTO 0 % (0-1); LYMPHOCYTES ABSOLUTE AUTO 1.04 K/mm3 (0.84-5.20); LYMPHOCYTES PERCENT AUTO 33 % (21-46); MONOCYTES ABSOLUTE AUTO 0.33 K/mm3 (0.16-1.47); MONOCYTES PERCENT AUTO 10 % (4-13); Mean Corpuscular HGB 38.4 pg (26.0-34.0); Mean Corpuscular HGB Conc 35.2 g/dL (31.5-36.5); Mean Corpuscular Volume 109 fL (80-100); Mean Platelet Volume 10.6 fL (9.1-12.4); NEUTROPHILS ABSOLUTE AUTO 1.71 K/mm3 (1.96-9.15); NEUTROPHILS PERCENT AUTO 54 % (41-73); Platelet Count 141 K/mm3 (150-400); RDW Coefficient Variation 13.9 % (11.7-14.2); RDW Standard Deviation 55.6 fL (35.1-46.3); Red Blood Cell Count 2.58 M/mm3 (3.80-5.20); White Blood Cell Count 3.16 K/mm3 (4.00-11.30)
[2024-10-12 02:40] LABS: Albumin, Blood 3.1 g/dL (3.4-5.0); Albumin/Globulin Ratio 1.1 (0.8-1.8); Bilirubin, Total 1.2 mg/dL (0.1-1.0); Calcium, Blood 8.3 mg/dL (8.5-10.1); Creatinine, Blood 0.44 mg/dL (0.40-1.00); Globulin, Blood 2.9 g/dL (2.2-4.0); Potassium, Blood 3.9 mmol/L (3.5-5.5)
[2024-10-12] MEDS ORDERED: Dextrose 50% 50 ML Syringe IV ONE (03:05)
[2024-10-12] MEDS ORDERED: Dextrose 50% 50 ML Vial IV ONE (03:10)
[2024-10-12 04:15] VITALS: BP 93/71
[2024-10-12 04:28] LABS: Hematocrit 24.6 % (33.0-51.0); Hemoglobin 8.6 g/dL (11.5-16.0)
== END 2024-10-12 06:00 | disposition home or self-care (01) ==
LOC: ER 00:37
PROVIDERS: Emergency Medicine
DX: K70.30 Alcoholic cirrhosis of liver without ascites (principal); D64.9 Anemia, unspecified; E88.09 Other disorders of plasma-protein metabolism, not elsewhere classified; R60.0 Localized edema; F17.210 Nicotine dependence, cigarettes, uncomplicated; Z79.899 Other long term (current) drug therapy
CPT/HCPCS: 80053; 82947; 85014; 85018; 85025; 96374; 96375; 99284-25; J2405; J7030; J7799

== ENCOUNTER 2024-11-10 23:54 | Emergency (ER) | payer MEDICARE, OTHER ==
[~2024-11-10] VITALS: Ht 165.1 cm; Wt 53.5 kg
[2024-11-11 02:08] LABS: Magnesium, Blood 1.5 mg/dL (1.6-2.4)
[2024-11-11 02:24] LABS: Albumin, Blood 2.8 g/dL (3.4-5.0); Albumin/Globulin Ratio 0.8 (0.8-1.8); Bilirubin, Total 1.1 mg/dL (0.1-1.0); Creatinine, Blood 0.4 mg/dL (0.40-1.00); Globulin, Blood 3.3 g/dL (2.2-4.0); Total Protein, Blood 6.1 g/dL (6.4-8.2)
[2024-11-11 02:33] LABS: BASOPHILS ABSOLUTE AUTO 0.08 K/mm3 (0.00-0.23); BASOPHILS PERCENT AUTO 2 % (0-2); EOSINOPHILS ABSOLUTE AUTO 0.03 K/mm3 (0.00-0.68); EOSINOPHILS PERCENT AUTO 1 % (0-6); Hematocrit 31.9 % (33.0-51.0); IMMATURE GRAN ABSOLUTE AUTO 0.01 K/mm3 (0.00-0.10); IMMATURE GRAN PERCENT AUTO 0 % (0-1); LYMPHOCYTES PERCENT AUTO 28 % (21-46); MONOCYTES PERCENT AUTO 6 % (4-13); Mean Corpuscular HGB 38.3 pg (26.0-34.0); Mean Corpuscular HGB Conc 34.5 g/dL (31.5-36.5); Mean Corpuscular Volume 111 fL (80-100); Mean Platelet Volume 11.2 fL (9.1-12.4); NEUTROPHILS ABSOLUTE AUTO 3.23 K/mm3 (1.96-9.15); NEUTROPHILS PERCENT AUTO 64 % (41-73); Platelet Count 239 K/mm3 (150-400); RDW Coefficient Variation 14.4 % (11.7-14.2); Red Blood Cell Count 2.87 M/mm3 (3.80-5.20); White Blood Cell Count 5.05 K/mm3 (4.00-11.30)
[2024-11-11] MEDS ORDERED: Magnesium Oxide 400 MG Tab PO ONE (02:55)
[2024-11-11 03:00] VITALS: BP 113/74
== END 2024-11-11 03:00 | disposition home or self-care (01) ==
LOC: ER 23:54
PROVIDERS: Emergency Medicine
DX: F10.129 Alcohol abuse with intoxication, unspecified (principal); R19.7 Diarrhea, unspecified; E83.42 Hypomagnesemia; Y90.8 Blood alcohol level of 240 mg/100 ml or more; F17.290 Nicotine dependence, other tobacco product, uncomplicated; Z79.899 Other long term (current) drug therapy
CPT/HCPCS: 80053; 80320; 83690; 83735; 85025; 99284

== ENCOUNTER 2025-01-29 13:53 | Inpatient (IN) | payer MEDICARE ==
[~2025-01-29] VITALS: Ht 165.1 cm; Wt 56.0 kg
[2025-01-29] MEDS ORDERED: Ondansetron HCl 2 MG / ML 2ML Vial IV PRN ×3 (14:00→18:20)
[2025-01-29] MEDS ORDERED: Pantoprazole Sodium 40 MG Injection IV ONE (14:15)
[2025-01-29] MEDS ORDERED: CefTRIAXone Sodium 1,000 MG in NS 50 ML IV ONE (14:15)
[2025-01-29 14:43] LABS: BASOPHILS ABSOLUTE AUTO 0.02 K/mm3 (0.00-0.23); BASOPHILS PERCENT AUTO 1 % (0-2); EOSINOPHILS ABSOLUTE AUTO 0.01 K/mm3 (0.00-0.68); EOSINOPHILS PERCENT AUTO 0 % (0-6); Hematocrit 30.3 % (33.0-51.0); Hemoglobin 10.3 g/dL (11.5-16.0); IMMATURE GRAN ABSOLUTE AUTO 0.01 K/mm3 (0.00-0.10); IMMATURE GRAN PERCENT AUTO 0 % (0-1); LYMPHOCYTES ABSOLUTE AUTO 0.82 K/mm3 (0.84-5.20); LYMPHOCYTES PERCENT AUTO 21 % (21-46); MONOCYTES ABSOLUTE AUTO 0.47 K/mm3 (0.16-1.47); MONOCYTES PERCENT AUTO 12 % (4-13); Mean Corpuscular HGB Conc 34.0 g/dL (31.5-36.5); Mean Corpuscular Volume 111 fL (80-100); NEUTROPHILS ABSOLUTE AUTO 2.51 K/mm3 (1.96-9.15); NEUTROPHILS PERCENT AUTO 65 % (41-73); NRBC ABSOLUTE 0.06 K/mm3 (0.00-0.02); NRBC Auto 1.6 /100 WBC (0.0-0.2); Platelet Count 257 K/mm3 (150-400); RDW Coefficient Variation 17.7 % (11.7-14.2); RDW Standard Deviation 70.4 fL (35.1-46.3)
[2025-01-29 14:57] LABS: Prothrombin Time Results 13.9 Sec (9.7-11.5)
[2025-01-29 15:35] LABS: Alanine Aminotransfer (ALT/SGP 47.0 U/L (12-78); Albumin, Blood 2.8 g/dL (3.4-5.0); Albumin/Globulin Ratio 0.7 (0.8-1.8); Anion Gap 12.0 mmol/L (3-11); Aspartate Aminotrans (AST/SGOT 105.0 U/L (12-37); Bilirubin, Total 4.4 mg/dL (0.1-1.0); Blood Urea Nitrogen 7.0 mg/dL (8-24); CO2, Blood 36.0 mmol/L (21-32); Calcium, Blood 8.3 mg/dL (8.5-10.1); Chloride, Blood 87.0 mmol/L (98-108); Creatinine, Blood 0.54 mg/dL (0.40-1.00); Globulin, Blood 4.2 g/dL (2.2-4.0); Glucose, Blood 126.0 mg/dL (70-99); Potassium, Blood 1.8 mmol/L (3.5-5.5); Sodium, Blood 133.0 mmol/L (136-145); Total Protein, Blood 7.0 g/dL (6.4-8.2)
[2025-01-29] MEDS ORDERED: NS 1,000 ML IV SCH ×2 (16:15→16:55)
[2025-01-29 16:23] LABS: Magnesium, Blood 1.8 mg/dL (1.6-2.4)
[2025-01-29 16:24] LABS: Phosphorus, Blood 1.3 mg/dL (2.5-4.9)
[2025-01-29] MEDS ORDERED: LORazepam 2 MG/ML 1ML Injection IV PRN ×2 (17:00→18:20)
[2025-01-29] MEDS ORDERED: Potassium Phosphate Dibasic 15 MM in Dextrose 5% 250 ML IV STA (17:02)
[2025-01-29 18:25] VITALS: BP 106/66
[2025-01-29 21:16] VITALS: BP 94/58
[2025-01-30 00:28] LABS: Campylobacter Sp Not Detected (NOT DETECT); E. Coli O157 Not Detected (NOT DETECT); Enteroaggregative E. coli-EAEC Not Detected (NOT DETECT); Enteropathogenic E. coli-EPEC Not Detected (NOT DETECT); Enterotoxigenic E. coli-ETEC Not Detected (NOT DETECT); Salmonella Sp Not Detected (NOT DETECT); Shiga Toxin-prod E. coli-STEC Not Detected (NOT DETECT); Shigella/Enteroin E. coli-EIEC Not Detected (NOT DETECT); Vibrio Sp Not Detected (NOT DETECT)
[2025-01-30] MEDS ORDERED: Potassium Chloride 60 MEQ IV SCH (01:15)
[2025-01-30] MEDS ORDERED: Magnesium Sulf 2 GM/Water 50ML 50 ML IV ONE (01:15)
[2025-01-30] MEDS ORDERED: Potassium Chl 20MEQ/Water100ML 100 ML IV SCH (01:35)
[2025-01-30 04:49] VITALS: BP 87/68
--- NOTE | 2025-01-30 06:43 | NUR ---
PT STATUS UNCHANGED THROUGHOUT SHIFT. PT CONTINUES TO HAVE SOFT BP. POTASSIUM CURRENTLY BEING REPLETED BY IV. PT DID RECEIVE PO POTASSIUM WELL. MAGNESIUM REPLETED BY IV. PT DID HAVE INFILTRATION TO LEFT ARM, INFUSION SWITCHED TO RIGHT ARM AND CONTINUED. IV REMOVED FROM LEFT ARM AND ARM WRAPPED IN BLANKET. SWELLING TO LEFT ARM HAS BEEN REDUCED AFTER BEING IN WARM BLANKET. PT CONTINUES TO HAVE LOOSE, DARK GREEN STOOLS AND IS INCONTINENT. PT IN ENTERIC PRECAUTIONS AND STARTED ON PO VANCO. PT WAS ABLE TO TRANSFER WITH 1 ASSIST TO BS AND URINATED, CONCENTRATED RADHIKA URINE. PT IS AOX4, CIWA NO GREATER THAN 2 THROUGHOUT SHIFT.
[2025-01-30 08:42] LABS: Hematocrit 27.0 % (33.0-51.0); Hemoglobin 8.9 g/dL (11.5-16.0); Mean Corpuscular HGB Conc 33.0 g/dL (31.5-36.5); Mean Corpuscular Volume 115 fL (80-100); NRBC ABSOLUTE 0.03 K/mm3 (0.00-0.02); NRBC Auto 0.8 /100 WBC (0.0-0.2); Platelet Count 167 K/mm3 (150-400); RDW Coefficient Variation 18.4 % (11.7-14.2); RDW Standard Deviation 76.8 fL (35.1-46.3)
[2025-01-30 08:44] VITALS: BP 89/62
[2025-01-30] MEDS ORDERED: Enoxaparin 40 MG/0.4 ML SYR SC SCH (09:00)
[2025-01-30 09:26] LABS: Magnesium, Blood 2.4 mg/dL (1.6-2.4)
[2025-01-30 09:27] LABS: Albumin, Blood 2.6 g/dL (3.4-5.0); Anion Gap 8 mmol/L (3-11); Blood Urea Nitrogen 6 mg/dL (8-24); CO2, Blood 33 mmol/L (21-32); Calcium, Blood 7.3 mg/dL (8.5-10.1); Chloride, Blood 94 mmol/L (98-108); Creatinine, Blood 0.46 mg/dL (0.40-1.00); Glucose, Blood 90 mg/dL (70-99); Phosphorus, Blood 1.5 mg/dL (2.5-4.9); Potassium, Blood 2.3 mmol/L (3.5-5.5); Sodium, Blood 133 mmol/L (136-145)
[2025-01-30] MEDS ORDERED: CALCIUM GLUC IN NACL, ISO-OSM 50 ML IV ONE (12:05)
[2025-01-30 12:43] LABS: IMMATURE RETIC FRACTION 35.5 % (2.3-16.0); RETIC HGB EQUIVALENT 37.9 pg (28.20-36.60); RETICULOCYTE ABSOLUTE 0.1211 M/mm3 (0.0200-0.1100); RETICULOCYTE COUNT PERCENT 5.53 % (0.50-2.50)
[2025-01-30] MEDS ORDERED: Potassium Phosphate Dibasic 30 MM in Dextrose 5% 500 ML IV STA (13:31)
[2025-01-30 13:45] LABS: Ferritin, Serum 121.0 ng/mL (8-252); Lactate Dehydrogenase (Ld),Bld 293.0 U/L (100-240); Total Iron Binding Capacity 179.0 ug/dL (250-450)
[2025-01-30] MEDS ORDERED: Protein Supplement 30 ML UD PO SCH (14:00)
[2025-01-30 14:02] VITALS: BP 81/57
[2025-01-30 15:21] VITALS: BP 88/58
[2025-01-30] MEDS ORDERED: NS 250 ML IV PRN (15:40)
[2025-01-30 16:15] LABS: Hematocrit 24.0 % (33.0-51.0); Hemoglobin 7.9 g/dL (11.5-16.0); Mean Corpuscular HGB Conc 32.9 g/dL (31.5-36.5); Mean Corpuscular Volume 115 fL (80-100); NRBC ABSOLUTE 0.03 K/mm3 (0.00-0.02); NRBC Auto 0.7 /100 WBC (0.0-0.2); Platelet Count 148 K/mm3 (150-400); RDW Coefficient Variation 18.5 % (11.7-14.2); RDW Standard Deviation 76.8 fL (35.1-46.3)
--- NOTE | 2025-01-30 18:20 | NUR ---
SHIFT SUMMARY NO ACUTE CHANGES SINCE CARE ASSUMPTION. PT A&OX4, SP02>90%ON RA. BP SOFT. CALCIUM GLUCONATE INFUSED PER EMAR. LR X1 BAG INFUSED PER EMAR. K+PHOS CURRENTLY INFUSING PER EMAR. 1/2NS CURRENTLY INFUSING PER EMAR. 2ND IV STARTED IN MALATHI. PT ADVANCED TO FULL LIQUID DIET TO TRY TO TOLERATE. PT AMBULATED MULTIPLE TIMES TO BATHROOM, INCONTINENT OF LOOSE/LIQUID BM. LINEN CHANGE. TRAVELING SALES REPRESENTATIVE NOTED SOME POSSIBLY RED SIGNS IN MOST RECENT BRIEF. PT CURRENTLY RESTING IN ROOM, CALL LIGHT IN REACH.
[2025-01-30 19:55] VITALS: BP 103/75
[2025-01-30 23:20] VITALS: BP 93/61
[2025-01-31] VITALS (8 sets, daily range): BP systolic 78–108; BP diastolic 61–78
[2025-01-31 03:51] LABS: Hematocrit 21.2 % (33.0-51.0); Hemoglobin 7.1 g/dL (11.5-16.0); Mean Corpuscular HGB Conc 33.5 g/dL (31.5-36.5); Mean Corpuscular Volume 114 fL (80-100); NRBC ABSOLUTE 0.00 K/mm3 (0.00-0.02); NRBC Auto 0.0 /100 WBC (0.0-0.2); Platelet Count 136 K/mm3 (150-400); RDW Coefficient Variation 18.1 % (11.7-14.2); RDW Standard Deviation 74.8 fL (35.1-46.3)
[2025-01-31 04:30] LABS: BASOPHILS ABSOLUTE MAN 0.00 K/mm3 (0.00-0.23); BASOPHILS PERCENT MAN 0 % (0-2); EOSINOPHILS ABSOLUTE MAN 0.07 K/mm3 (0.00-0.68); EOSINOPHILS PERCENT MAN 2 % (0-6); LYMPHOCYTES % ATYPICAL MANUAL 1 % (0-0); LYMPHOCYTES ABSOLUTE MAN 0.91 K/mm3 (0.84-5.20); LYMPHOCYTES PERCENT MAN 23 % (21-46); MONOCYTES ABSOLUTE MAN 0.38 K/mm3 (0.16-1.47); MONOCYTES PERCENT MAN 10 % (4-13); NEUTROPHILS ABSOLUTE MAN 2.44 K/mm3 (1.96-9.15); SEG NEUTROPHILS PERCENT MAN 64 % (41-73)
[2025-01-31 04:39] LABS: Alanine Aminotransfer (ALT/SGP 32.0 U/L (12-78); Albumin, Blood 2.1 g/dL (3.4-5.0); Albumin/Globulin Ratio 0.8 (0.8-1.8); Anion Gap 7.0 mmol/L (3-11); Aspartate Aminotrans (AST/SGOT 80.0 U/L (12-37); Bilirubin, Total 2.4 mg/dL (0.1-1.0); Blood Urea Nitrogen 4.0 mg/dL (8-24); CO2, Blood 29.0 mmol/L (21-32); Calcium, Blood 6.8 mg/dL (8.5-10.1); Chloride, Blood 99.0 mmol/L (98-108); Creatinine, Blood 0.45 mg/dL (0.40-1.00); Globulin, Blood 2.7 g/dL (2.2-4.0); Glucose, Blood 97.0 mg/dL (70-99); Potassium, Blood 2.5 mmol/L (3.5-5.5); Sodium, Blood 132.0 mmol/L (136-145)
[2025-01-31 04:40] LABS: Total Protein, Blood 4.8 g/dL (6.4-8.2)
[2025-01-31 06:22] LABS: Hematocrit 25.4 % (33.0-51.0); Hemoglobin 8.4 g/dL (11.5-16.0)
--- NOTE | 2025-01-31 06:27 | NUR ---
SHIFT SUMMARY: PT A&OX4 CALM AND COOPERATIVE. SOFT BPS WITH SBP 80S-100S. MAINTAINING >92% ON RA. FREQUENT EPISODES OF STOOL INCONTINENCE. STOOL IS ORANGE/LIGHT RED TINGED LIQUID. PROVIDER NOTIFIED OF STOOL APPEARANCE AND H&H OF 7.1 AND 21.2%. PROVIDER ORDERED REPEAT H&H. POTASSIUM 2.5 REPLACED PER EMAR. OCCULT STOOL SAMPLE COLLECTED. SBA WITH FWW TO BR. BED IS LOW AND LOCKED AND CALL LIGHT WITHIN REACH. WILL CONTINUE PLAN OF CARE TILL REPORT GIVEN TO DAY SHIFT NURSE.
[2025-01-31] MEDS ORDERED: CALCIUM GLUC IN NACL, ISO-OSM 50 ML IV ONE ×2 (08:55→19:05)
[2025-01-31] MEDS ORDERED: Multivitamins-Minerals Liquid 15 ML Oral Syringe PO SCH (09:00)
[2025-01-31] MEDS ORDERED: NS 1,000 ML IV SCH (09:00)
[2025-01-31 09:49] LABS: C-REACTIVE PROTEIN, EXT RANGE 2.4 mg/dL (0.000-0.300); Magnesium, Blood 1.7 mg/dL (1.6-2.4)
[2025-01-31 12:19] LABS: Stool Occult Blood Guaiac 1 Neg (Neg)
[2025-01-31] MEDS ORDERED: Mag Sulfate 1 GM/D5% 100ML 100 ML IV STA (13:44)
[2025-01-31] MEDS ORDERED: Ergocalciferol 50000 Intn'l Units PO SCH (13:55)
[2025-01-31] MEDS ORDERED: Pantoprazole Sodium 40 MG Injection IV SCH (14:00)
[2025-01-31 15:42] LABS: Prothrombin Time Results 16.2 Sec (9.7-11.5)
[2025-01-31 16:06] LABS: Anion Gap 8.0 mmol/L (3-11); Bilirubin, Direct 1.7 mg/dL (0.0-0.3); Bilirubin, Indirect 0.6 mg/dL (0.1-0.7); Bilirubin, Total 2.3 mg/dL (0.1-1.0); Blood Urea Nitrogen 4.0 mg/dL (8-24); CO2, Blood 28.0 mmol/L (21-32); Calcium, Blood 7.3 mg/dL (8.5-10.1); Chloride, Blood 102.0 mmol/L (98-108); Creatinine, Blood 0.51 mg/dL (0.40-1.00); Glucose, Blood 109.0 mg/dL (70-99); Lactate Dehydrogenase (Ld),Bld 279.0 U/L (100-240); Potassium, Blood 3.4 mmol/L (3.5-5.5); Sodium, Blood 135.0 mmol/L (136-145); Thyroid Stimulating Hormone 11.9 uIU/mL (0.360-4.800)
--- NOTE | 2025-01-31 17:30 | NUR ---
PT SUMMARY; PT HAD SBD CT SCAN DONE WITH CONTRAST, RESULTS REPORTED TO DR JETT POSSIBLE AUTOIMMUNE INFECTION AND HEPATITIS, MULTIPLE SEND OUT LABS ORDERED NEEDING 15 VIALS POWERGLIDE PLACED ON DANIEL FOR ACCURATE DRAW RESULTS. FOUND SOME ASCITES WELL PT IS SCHEDULED FOR PARACENTESIS FOR TOMORROW MORNING, HOLD BLOOD THINNER FOR 24HRS. PT HAS BEEN COOPERATIVE WITH CARES SOMETIMES EMOTIONAL AND IS OVERWHELMED WITH SOME INFORMATION PT WAS ENCOURAGED FOR A WALK ABLE TO WALK WITH THE WALKER AROUND THE UNIT. VITALS HRR 80-100'S, SATS ABOVE 95% ON RA, AFEBRILE, SOFT BP'S HIGH 80'S-100'S MAP >70. PT STILL HAS FREQUENT LOOSE GREEN/YELLOW BM'S, IMMODIUM GIVEN FOR THE SHIFT. REPEAT LABS IN AM, ALL ELECTORLYTES REPLETED FOR THE SHIFT, NS RUNNING AT 150MLS/HR. PT HAS BEEN UP IN THE RECLINER A COUPLE TIMES. NO OTHER ISSUES REPORTED WILL REPORT TO ONCOMING SHIFT
[2025-01-31] MEDS ORDERED: Magnesium Sulf 2 GM/Water 50ML 50 ML IV STA (18:44)
[2025-01-31] MEDS ORDERED: HYDROmorphone HCl/Pf 1MG SYR IV PRN (20:45)
[2025-01-31 22:55] LABS: Anion Gap 9.0 mmol/L (3-11); Blood Urea Nitrogen 5.0 mg/dL (8-24); CO2, Blood 27.0 mmol/L (21-32); Calcium, Blood 7.7 mg/dL (8.5-10.1); Chloride, Blood 104.0 mmol/L (98-108); Creatinine, Blood 0.54 mg/dL (0.40-1.00); Glucose, Blood 107.0 mg/dL (70-99); Potassium, Blood 3.9 mmol/L (3.5-5.5); Sodium, Blood 136.0 mmol/L (136-145)
[2025-01-31 23:52] LABS: HAPTOGLOBIN 75 mg/dL (30-200)
[2025-02-01] VITALS (22 sets, daily range): BP systolic 77–155; BP diastolic 56–96
[2025-02-01 03:29] LABS: Hematocrit 21.6 % (33.0-51.0); Hemoglobin 7.1 g/dL (11.5-16.0); Mean Corpuscular HGB Conc 32.9 g/dL (31.5-36.5); Mean Corpuscular Volume 116 fL (80-100); NRBC ABSOLUTE 0.00 K/mm3 (0.00-0.02); NRBC Auto 0.0 /100 WBC (0.0-0.2); Platelet Count 150 K/mm3 (150-400); RDW Coefficient Variation 18.2 % (11.7-14.2); RDW Standard Deviation 76.8 fL (35.1-46.3)
[2025-02-01 03:50] LABS: Alanine Aminotransfer (ALT/SGP 34.0 U/L (12-78); Albumin, Blood 2.1 g/dL (3.4-5.0); Albumin/Globulin Ratio 0.8 (0.8-1.8); Anion Gap 8.0 mmol/L (3-11); Aspartate Aminotrans (AST/SGOT 67.0 U/L (12-37); Bilirubin, Total 1.9 mg/dL (0.1-1.0); Blood Urea Nitrogen 5.0 mg/dL (8-24); CO2, Blood 27.0 mmol/L (21-32); Calcium, Blood 7.4 mg/dL (8.5-10.1); Chloride, Blood 105.0 mmol/L (98-108); Creatinine, Blood 0.47 mg/dL (0.40-1.00); Globulin, Blood 2.8 g/dL (2.2-4.0); Glucose, Blood 101.0 mg/dL (70-99); Magnesium, Blood 2.5 mg/dL (1.6-2.4); Phosphorus, Blood 2.4 mg/dL (2.5-4.9); Potassium, Blood 3.8 mmol/L (3.5-5.5); Sodium, Blood 136.0 mmol/L (136-145); Total Protein, Blood 4.9 g/dL (6.4-8.2)
[2025-02-01 04:02] LABS: BAND PERCENT MAN 4 % (0-8); BASOPHILS ABSOLUTE MAN 0.00 K/mm3 (0.00-0.23); BASOPHILS PERCENT MAN 0 % (0-2); EOSINOPHILS ABSOLUTE MAN 0.04 K/mm3 (0.00-0.68); EOSINOPHILS PERCENT MAN 1 % (0-6); LYMPHOCYTES ABSOLUTE MAN 0.72 K/mm3 (0.84-5.20); LYMPHOCYTES PERCENT MAN 16 % (21-46); MONOCYTES ABSOLUTE MAN 0.27 K/mm3 (0.16-1.47); MONOCYTES PERCENT MAN 6 % (4-13); NEUTROPHILS ABSOLUTE MAN 3.46 K/mm3 (1.96-9.15); SEG NEUTROPHILS PERCENT MAN 73 % (41-73)
--- NOTE | 2025-02-01 06:02 | NUR ---
SHIFT SUMMARY PATIENT ALERT AND ORIENTED X4. PATIENT REPORTED HAVING ABDOMINAL SWELLING AND TIGHTNESS THAT TYLENOL WAS INEFFECTIVE FOR, NOTIFIED SINGLE STAYER OPERATOR RESIDENT. PATIENT MEDICATED PER EMAR FOR PAIN. ON ROOM AIR WITH SPO2 >90%. VITAL SIGNS STABLE. NO ACUTE ISSUES NOTED. WILL CONTINUE TO MONITOR. CALL LIGHT WITHIN REACH.
[2025-02-01] MEDS ORDERED: Potassium Phosphate Dibasic 10 MM in Dextrose 5% 250 ML IV STA (09:21)
[2025-02-01] MEDS ORDERED: CALCIUM GLUC IN NACL, ISO-OSM 50 ML IV ONE (09:25)
--- NOTE | 2025-02-01 11:04 | NUR ---
ASSUMPTION OF CARE: PATIENT IS ALERT AND ORIENTED WAS GROGGY THIS AM FORM DILAUDED THROUGH THE NIGHT, SPO2 LOW OF 78 WHILE SLEEPING PLACED A 2L, DILAUDED HAS WORN OFF AND BACK TO RA. CONTIUOUS O2 MONITORING AND TELE IN PLACE. DENIES CHEST PAIN PRESSURE OR SOB. NAUSEA RESOLVED WITH O2 SUPPLEMENTATION AND ZOFRAN. TOLERATING PO INTAKE, HOWEVER, POOR APPETITE, CURRENTLY AT PARACENTESIS AT TIME OF NOTE. PATIENT DENIES CHEST PAIN PRESSURE. 2.5L OFF PARACENTESIS BLOOD PRESSURE UPPER 80'S POST MAP >65. PLAN OF CARE CONTINUES.
[2025-02-01 11:05] LABS: Hematocrit 21.2 % (33.0-51.0); Hemoglobin 6.8 g/dL (11.5-16.0)
[2025-02-01 11:28] LABS: Automated BF WBC Count 0.133 K/mm3 (0-999)
[2025-02-01 11:45] LABS: Albumin, Body Fluid 0.4 g/dL; Glucose, Body Fluid 103 mg/dL
[2025-02-01 12:04] LABS: Lactate Dehydrogenase, Body Fl 41 U/L
[2025-02-01 12:11] LABS: Triglycerides, Body Fluid 38 mg/dL
[2025-02-01 12:38] LABS: RBC Count, Body Fluid 10 /mm3 (0-0)
[2025-02-01 12:40] LABS: Color, Body Fluid Yellow (None-Yellow)
[2025-02-01 12:55] LABS: Lymphocytes, Fluid 31.0 % (0.0-18.0); Monocytes/Mononuclear, Fluid 21.0 % (0.0-50.0); Neutrophils, Fluid 44.0 % (0.0-25.0); Total Cell Count, Body Fluid 100
[2025-02-01] MEDS ORDERED: CefTRIAXone Sodium 2,000 MG in NS 100 ML IV SCH (13:55)
--- NOTE | 2025-02-01 16:47 | NUR ---
PT UNAVALIABLE DURING MY ROUNDS. DISCUSSED CASE WITH DR. JETT.
--- NOTE | 2025-02-01 17:23 | NUR ---
EOS: PATIENT STILL IS SOFT ON BLOOD PRESSURE DESPITE 1 UNIT OF BLOOD MAP >65. DENIES LIGHTHEADEDNESS OR DIZZINESS WHICH SHE HAD PREVIOUS TO THE UNIT OF BLOOD. LABS SENT, DENIES CHEST PAIN PRESSURE OR SOB. PARACAENTESIS SITE C/D/I. NO ACUTE CONCERNS FROM THIS RN. PLAN OF CARE CONTINUES.
[2025-02-01] MEDS ORDERED: HYDROcodone 5-APAP 325 TAB PO PRN (17:50)
[2025-02-01 19:46] LABS: Hematocrit 26.9 % (33.0-51.0); Hemoglobin 9.0 g/dL (11.5-16.0)
[2025-02-01 21:34] LABS: TISSUE TRANSGLUTAMINAS TTG,IGA <1.02 FLU (0.00-4.99)
[2025-02-02 03:22] VITALS: BP 112/76
[2025-02-02 03:26] LABS: Hematocrit 26.3 % (33.0-51.0); Hemoglobin 9.0 g/dL (11.5-16.0); Mean Corpuscular HGB Conc 34.2 g/dL (31.5-36.5); NRBC ABSOLUTE 0.00 K/mm3 (0.00-0.02); NRBC Auto 0.0 /100 WBC (0.0-0.2); Platelet Count 134 K/mm3 (150-400); RDW Coefficient Variation 26.9 % (11.7-14.2); RDW Standard Deviation 95.6 fL (35.1-46.3)
[2025-02-02 03:45] LABS: Alanine Aminotransfer (ALT/SGP 31.0 U/L (12-78); Albumin, Blood 1.9 g/dL (3.4-5.0); Albumin/Globulin Ratio 0.7 (0.8-1.8); Anion Gap 6.0 mmol/L (3-11); Aspartate Aminotrans (AST/SGOT 80.0 U/L (12-37); Bilirubin, Total 2.4 mg/dL (0.1-1.0); Blood Urea Nitrogen 8.0 mg/dL (8-24); CO2, Blood 29.0 mmol/L (21-32); Calcium, Blood 7.6 mg/dL (8.5-10.1); Chloride, Blood 102.0 mmol/L (98-108); Creatinine, Blood 0.46 mg/dL (0.40-1.00); Globulin, Blood 2.8 g/dL (2.2-4.0); Glucose, Blood 87.0 mg/dL (70-99); Magnesium, Blood 2.0 mg/dL (1.6-2.4); Phosphorus, Blood 2.8 mg/dL (2.5-4.9); Potassium, Blood 3.7 mmol/L (3.5-5.5); Sodium, Blood 133.0 mmol/L (136-145); Total Protein, Blood 4.7 g/dL (6.4-8.2)
[2025-02-02 03:48] LABS: Mean Corpuscular Volume 101 fL (80-100)
--- NOTE | 2025-02-02 05:03 | NUR ---
SHIFT SUMMARY PT IS A&O X4, ABLE TO MAKE NEEDS KNOWN, CALLS APPROPRIATELY. VSS, AFEBRILE. LOW BP BUT MAP REMAINS ABOVE 65. SPO2 >92% ON RA. PT IS SBA TO THE RESTROOM. PAIN MEDICATED PER EMAR. PARACENTESIS SITE WITH DRESSING IS C/D/I. BED IN LOWEST POSITION, CALL LIGHT IN REACH, BREATHING IS EVEN AND UNLABORED.
[2025-02-02 06:11] LABS: FACTIN SMOOTH MUSCLE,IGG ELISA 4 Units (0-19); MITOCHONDRIAL (M2) AB,IGG 3.0 Units (0.0-24.9)
[2025-02-02 07:40] VITALS: BP 80/62
[2025-02-02] MEDS ORDERED: Folic Acid 1 MG TAB PO SCH (09:00)
[2025-02-02] MEDS ORDERED: Lactobacil 2-S.Thermo-Bifido 1 1 Cap PO SCH (09:00)
[2025-02-02] MEDS ORDERED: OxyCODONE 5 mg/Acetamin 325 mg TABLET PO PRN (09:45)
[2025-02-02 10:19] LABS: HEPATITIS A ANTIBODY, IGM Negative (Negative); HEPATITIS C AB CIA INTERP Negative (Negative); HEPATITIS C ANTIBODY CIA INDEX 0.03 IV
[2025-02-02 10:57] LABS: CERULOPLASMIN 22 mg/dL (16-45)
[2025-02-02 11:09] VITALS: BP 88/69
[2025-02-02 11:33] LABS: MYELOPEROXIDASE (MPO) AB,IGG 0 AU/mL (0-19); SERINE PROTEINASE 3 PR3 AB,IGG 2 AU/mL (0-19)
[2025-02-02 11:48] LABS: ANTI-NUCLEAR AB ANA,IGG ELISA None Detected (None Detected)
[2025-02-02 13:55] LABS: CALPROTECTIN,FECAL 107 ug/g (<=49)
[2025-02-02 15:40] VITALS: BP 87/59
--- NOTE | 2025-02-02 17:44 | NUR ---
SHIFT NOTE: PT A/OX4 ABLE TO MAKE NEEDS KNONW. SHE HAS BEEN SLEEPING T/O THE DAY BUT REPORTS IT IS DUE TO BEING BORED NOT MALAISE. HER BP REMAINS LOW BUT MAPS HAVE REMAINED >65. MIDODRINE STARTED TODAY TID. SEE EMAR. SHE IS ON RA WITH NO SOB. SHE AMBULATES THE UNIT WITH 1P STAFF ASSIST. PT REPORTS RLQ PAIN THIS AM, MEDICATED PER EMAR. CARE CONTINUES
[2025-02-02 19:44] LABS: VITAMIN D,1,25-DIHYDROXY 51.6 pg/mL (19.9-79.3)
[2025-02-02 21:31] VITALS: BP 103/64
[2025-02-02 23:31] VITALS: BP 82/64
[2025-02-03 01:15] LABS: EBV AB TO EARLY (D) AG IGG 15.2 U/mL (0.0-10.9); EBV AB TO VIRAL CAPSID AG IGG >750.0 U/mL (0.0-21.9); EBV AB TO VIRAL CAPSID AG IGM 23.5 U/mL (0.0-43.9); EBV ANTIBODY TO NUCLEAR AG IGG 369.0 U/mL (0.0-21.9)
[2025-02-03 01:45] LABS: CMV ANTIBODY IGG <0.20 U/mL (<=0.70); CMV ANTIBODY IGM <8.0 AU/mL (<=29.9)
[2025-02-03 03:56] VITALS: BP 90/60
[2025-02-03 04:18] LABS: BASOPHILS ABSOLUTE AUTO 0.03 K/mm3 (0.00-0.23); BASOPHILS PERCENT AUTO 1 % (0-2); EOSINOPHILS ABSOLUTE AUTO 0.06 K/mm3 (0.00-0.68); EOSINOPHILS PERCENT AUTO 1 % (0-6); Hematocrit 26.7 % (33.0-51.0); Hemoglobin 9.0 g/dL (11.5-16.0); IMMATURE GRAN ABSOLUTE AUTO 0.02 K/mm3 (0.00-0.10); IMMATURE GRAN PERCENT AUTO 1 % (0-1); LYMPHOCYTES ABSOLUTE AUTO 0.96 K/mm3 (0.84-5.20); LYMPHOCYTES PERCENT AUTO 22 % (21-46); MONOCYTES ABSOLUTE AUTO 0.63 K/mm3 (0.16-1.47); MONOCYTES PERCENT AUTO 14 % (4-13); Mean Corpuscular HGB Conc 33.7 g/dL (31.5-36.5); Mean Corpuscular Volume 102 fL (80-100); NEUTROPHILS ABSOLUTE AUTO 2.72 K/mm3 (1.96-9.15); NEUTROPHILS PERCENT AUTO 61 % (41-73); NRBC ABSOLUTE 0.00 K/mm3 (0.00-0.02); NRBC Auto 0.0 /100 WBC (0.0-0.2); Platelet Count 144 K/mm3 (150-400); RDW Coefficient Variation 26.2 % (11.7-14.2); RDW Standard Deviation 95.7 fL (35.1-46.3)
[2025-02-03 04:49] LABS: Alanine Aminotransfer (ALT/SGP 29.0 U/L (12-78); Albumin, Blood 1.9 g/dL (3.4-5.0); Albumin/Globulin Ratio 0.7 (0.8-1.8); Anion Gap 6.0 mmol/L (3-11); Aspartate Aminotrans (AST/SGOT 63.0 U/L (12-37); Bilirubin, Total 1.7 mg/dL (0.1-1.0); Blood Urea Nitrogen 10.0 mg/dL (8-24); CO2, Blood 30.0 mmol/L (21-32); Calcium, Blood 7.5 mg/dL (8.5-10.1); Chloride, Blood 102.0 mmol/L (98-108); Creatinine, Blood 0.49 mg/dL (0.40-1.00); Globulin, Blood 2.8 g/dL (2.2-4.0); Glucose, Blood 93.0 mg/dL (70-99); Potassium, Blood 3.2 mmol/L (3.5-5.5); Sodium, Blood 135.0 mmol/L (136-145); Total Protein, Blood 4.7 g/dL (6.4-8.2)
--- NOTE | 2025-02-03 06:23 | NUR ---
SHIFT SUMMARY PT IS A&O X4, ABLE TO MAKE NEEDS KNOWN, MOVING ALL EXTREMITIES WITH PURPOSE, REPOSITIONING SELF IN BED, OBEYS COMMANDS. SPO2 GREATER 90% ON RA, LUNGS SOUND CLEAR T/O, NO SIGNS OF RESPIRATORY DISTRESS. CONTINUOUS TELE MONITORING,SINUS 80-90 S, PULSES PRESENT T/O, PT DENEIS CHEST P/P T/O THIS SHIFT, BP STABLE WITH MAP GREATER THAN 65. BOWEL TONES PRESENT IN ALL 4Q, PT DENIES FEELINGS OF NAUSEA, OR CONSTIPATION. PT USING ATTENDS FOR NIGHT TIME INCONTINENCE. PT REPORTING CHRONIC PAIN TO SHOULDERS AND ABD, MEDICATED PER EMAR. RIGHT ABD PUNCTURE FROM PROCEDURE IS WITHOUT REDNESS OR OOZING, DRESSING C/D/I. BED LOWEST POSITION, CALL LIGHT IN REACH, AWAITING TO GIVE REPORT TO ONCOMING RN.
[2025-02-03 07:30] VITALS: BP 91/67
[2025-02-03 11:34] VITALS: BP 81/59
[2025-02-03] MEDS ORDERED: Zinc Sulfate 220 MG Cap (Provides 50MG) PO SCH (15:00)
[2025-02-03 15:55] VITALS: BP 87/59
--- NOTE | 2025-02-03 17:26 | NUR ---
SHIFT NOTE: PT A/OX4 ABLE TO MAKE HER NEEDS KNOWN. SHE AMBULATES TO THE BATHROOM 1P SBA ONLY NEEDING ASSISTANCE TO GET OFF THE TOILET. SHE HAS HAD LOOSE BM AND INCREASED ABD DISTENTION. SHE REPORTS A FULL HEAVY FEELING. HER BLOOD PRESSURE CONTINUES TO BE LOW BUT MAINTAINING MAP >65 ON 5MG MIDODRINE TID PER EMAR. PT HAS REQUIRED THE ORDERED PERCOCET SEVERAL TIMES T/O DAY DUE TO SHOULDER PAIN. PT EDUCATED ON USE OF I.S. TO INCREASE LUNG COMPLIANCE. CARE CONTINUES
[2025-02-03 20:18] VITALS: BP 91/64
[2025-02-03 23:13] VITALS: BP 93/59
[2025-02-04 03:45] VITALS: BP 98/66
[2025-02-04 04:27] LABS: BASOPHILS ABSOLUTE AUTO 0.04 K/mm3 (0.00-0.23); BASOPHILS PERCENT AUTO 1 % (0-2); EOSINOPHILS ABSOLUTE AUTO 0.05 K/mm3 (0.00-0.68); EOSINOPHILS PERCENT AUTO 1 % (0-6); Hematocrit 28.6 % (33.0-51.0); Hemoglobin 9.5 g/dL (11.5-16.0); Mean Corpuscular HGB Conc 33.2 g/dL (31.5-36.5); Mean Corpuscular Volume 105 fL (80-100); NRBC ABSOLUTE 0.00 K/mm3 (0.00-0.02); NRBC Auto 0.0 /100 WBC (0.0-0.2); Platelet Count 185 K/mm3 (150-400); RDW Coefficient Variation 25.8 % (11.7-14.2); RDW Standard Deviation 96.8 fL (35.1-46.3)
[2025-02-04 04:31] LABS: IMMATURE GRAN ABSOLUTE AUTO 0.02 K/mm3 (0.00-0.10); IMMATURE GRAN PERCENT AUTO 0 % (0-1); LYMPHOCYTES ABSOLUTE AUTO 0.97 K/mm3 (0.84-5.20); LYMPHOCYTES PERCENT AUTO 21 % (21-46); MONOCYTES ABSOLUTE AUTO 0.73 K/mm3 (0.16-1.47); MONOCYTES PERCENT AUTO 16 % (4-13); NEUTROPHILS ABSOLUTE AUTO 2.73 K/mm3 (1.96-9.15); NEUTROPHILS PERCENT AUTO 60 % (41-73)
[2025-02-04 04:50] LABS: Alanine Aminotransfer (ALT/SGP 27.0 U/L (12-78); Albumin, Blood 1.9 g/dL (3.4-5.0); Albumin/Globulin Ratio 0.6 (0.8-1.8); Anion Gap 5.0 mmol/L (3-11); Aspartate Aminotrans (AST/SGOT 58.0 U/L (12-37); Bilirubin, Total 1.8 mg/dL (0.1-1.0); Blood Urea Nitrogen 12.0 mg/dL (8-24); CO2, Blood 30.0 mmol/L (21-32); Calcium, Blood 7.9 mg/dL (8.5-10.1); Chloride, Blood 103.0 mmol/L (98-108); Creatinine, Blood 0.47 mg/dL (0.40-1.00); Globulin, Blood 3.1 g/dL (2.2-4.0); Glucose, Blood 83.0 mg/dL (70-99); Magnesium, Blood 1.8 mg/dL (1.6-2.4); Phosphorus, Blood 3.1 mg/dL (2.5-4.9); Potassium, Blood 3.9 mmol/L (3.5-5.5); Sodium, Blood 134.0 mmol/L (136-145); Total Protein, Blood 5.0 g/dL (6.4-8.2)
--- NOTE | 2025-02-04 05:32 | NUR ---
SHIFT SUMMARY PT IS A&O X4, ABLE TO MAKE NEEDS KNOWN, MOVING ALL EXTREMITIES WITH PURPOSE, REPOSITIONING SELF IN BED, OBEYS COMMANDS, PATIENT BENEFITS FROM VERBAL CUES AND ENCOURAGMENT TO PREFORM ADL S. SPO2 GREATER 90% ON RA, LUNGS SOUND CLEAR T/O, NO SIGNS OF RESPIRATORY DISTRESS. CONTINUOUS TELE MONITORING,SINUS 70-90 S, PULSES PRESENT T/O, PT DENEIS CHEST P/P T/O THIS SHIFT, BP STABLE WITH MAP GREATER THAN 65. BOWEL TONES PRESENT IN ALL 4Q, PT DENIES FEELINGS OF NAUSEA, OR CONSTIPATION, INCREASED ABD DISTENTION. PT USING ATTENDS FOR NIGHT TIME INCONTINENCE. PT REPORTING CHRONIC PAIN TO SHOULDERS AND ABD, MEDICATED PER EMAR. RIGHT ABD PUNCTURE FROM PROCEDURE IS WITHOUT REDNESS OR OOZING. BED LOWEST POSITION, CALL LIGHT IN REACH, AWAITING TO GIVE REPORT TO ONCOMING RN.
[2025-02-04 07:24] VITALS: BP 98/68
--- NOTE | 2025-02-04 07:35 | NUR ---
ASSUMPTION OF CARE: PATIENT IS ALERT AND ORIENTED X4 PLEASANT AND COOPERATIVE, ENDORSES DECREASED ABD PAIN, NEEDING PAIN MEDS LESS FREQUENT SHE ENDORSED, BLOOD PRESSURE STABLE WITHOUT MIDODRINE THIS AM. CURRENTLY RECIEVING ABD U/S. DENIES CHEST PAIN OR PRESSURE. PATIENT OVERALL APPEARS IMPROVED FROM PREIVOUS SHIFT WITH PATIENT. HOME WALKER IN ROOM, STILL MINORLY WEAK. TELE INPLACE VSS.
[2025-02-04] MEDS ORDERED: Vitamin B Cmplx/Vit C/Folic Ac 1 Tab PO SCH (09:00)
[2025-02-04] MEDS ORDERED: Zinc Sulfate 220 MG Cap (Provides 50MG) PO SCH (09:00)
[2025-02-04] MEDS ORDERED: Albumin (Human) 25gm/100ml 100 ML IV ONE (09:00)
[2025-02-04] MEDS ORDERED: Folic Acid 1 MG TAB PO SCH (10:00)
[2025-02-04 12:13] VITALS: BP 84/64
[2025-02-04 16:07] VITALS: BP 96/67
--- NOTE | 2025-02-04 16:08 | NUR ---
EOS: ONLY CHANGES FROM ASSUMPTION IS PATIENT HAS SOME MINOR INCREASE TO ABD SIZE, DID SLOWLY IMPROVE THROUGH THE SHIFT. DID COMPLAIN OF LOWER ABD PAIN, BLADDER SCAN DIFFICULT PATIENT HAS ASCITITES, STILL VOIDING HAS DIFFICULTY VOIDING IN HAT, MANY UNMEASURED VOIDS, BUT ABLE TO URINATE WITH NO BURNING STINGING OR DIFFICUTLY STARTING A STREAM, PATIENT DENIES CHEST PAIN PRESSURE OR SOB. ADDED DIURETICS FROM HOSPITALIST VINCE UPDATE ABOUT CONDITION. SPO2 MONITORING DID DIP BELOW 88% ON PATIENT BACK, SHE IS ON HER SIDE NO DIP BELOW 90. 2 BM'S SO FAR FOR THIS RN. APPETITE IS LABILE. PLAN OF CARE ИРИНА
[2025-02-04 19:12] VITALS: BP 98/61
[2025-02-04 23:12] VITALS: BP 92/74
[2025-02-05 04:22] VITALS: BP 82/59
[2025-02-05 04:42] LABS: ZINC,SERUM/PLASMA 31.0 ug/dL (60.0-120.0)
[2025-02-05 04:50] LABS: BASOPHILS ABSOLUTE AUTO 0.04 K/mm3 (0.00-0.23); BASOPHILS PERCENT AUTO 1 % (0-2); EOSINOPHILS ABSOLUTE AUTO 0.07 K/mm3 (0.00-0.68); EOSINOPHILS PERCENT AUTO 2 % (0-6); Hematocrit 26.4 % (33.0-51.0); Hemoglobin 8.8 g/dL (11.5-16.0); Mean Corpuscular HGB Conc 33.3 g/dL (31.5-36.5); Mean Corpuscular Volume 107 fL (80-100); NRBC ABSOLUTE 0.00 K/mm3 (0.00-0.02); NRBC Auto 0.0 /100 WBC (0.0-0.2); Platelet Count 209 K/mm3 (150-400); RDW Coefficient Variation 25.3 % (11.7-14.2); RDW Standard Deviation 95.9 fL (35.1-46.3)
[2025-02-05 04:51] LABS: IMMATURE GRAN ABSOLUTE AUTO 0.01 K/mm3 (0.00-0.10); IMMATURE GRAN PERCENT AUTO 0 % (0-1); LYMPHOCYTES ABSOLUTE AUTO 1.19 K/mm3 (0.84-5.20); LYMPHOCYTES PERCENT AUTO 29 % (21-46); MONOCYTES ABSOLUTE AUTO 0.81 K/mm3 (0.16-1.47); MONOCYTES PERCENT AUTO 19 % (4-13); NEUTROPHILS ABSOLUTE AUTO 2.05 K/mm3 (1.96-9.15); NEUTROPHILS PERCENT AUTO 49 % (41-73)
[2025-02-05 05:12] LABS: Alanine Aminotransfer (ALT/SGP 22.0 U/L (12-78); Albumin, Blood 2.2 g/dL (3.4-5.0); Albumin/Globulin Ratio 0.8 (0.8-1.8); Anion Gap 5.0 mmol/L (3-11); Aspartate Aminotrans (AST/SGOT 45.0 U/L (12-37); Bilirubin, Total 1.7 mg/dL (0.1-1.0); Blood Urea Nitrogen 14.0 mg/dL (8-24); CO2, Blood 32.0 mmol/L (21-32); Calcium, Blood 7.6 mg/dL (8.5-10.1); Chloride, Blood 103.0 mmol/L (98-108); Creatinine, Blood 0.52 mg/dL (0.40-1.00); Globulin, Blood 2.6 g/dL (2.2-4.0); Glucose, Blood 80.0 mg/dL (70-99); Magnesium, Blood 1.8 mg/dL (1.6-2.4); Phosphorus, Blood 2.9 mg/dL (2.5-4.9); Potassium, Blood 3.6 mmol/L (3.5-5.5); Sodium, Blood 136.0 mmol/L (136-145); Total Protein, Blood 4.8 g/dL (6.4-8.2)
--- NOTE | 2025-02-05 06:14 | NUR ---
SHIFT SUMMARY. PATIENT IS A&OX4, CALLS APPROPRIATELY, ABLE TO MAKE HER NEEDS KNOWN AND IS COOPERATIVE WITH CARE. PATIENT REPORTS ABDOMINAL PAIN THIS SHIFT-MEDICATER PER EMAR X2 WITH IMPROVEMENT, PATIENT RELAYS THAT SHE HAS HAD A DECREASE IN HER PAIN AND IS ABLE TO GO LONGER INBETWEEN PAIN MEDICATIONS. PATIENT IS AMBULATORY TO BATHROOM WITH STEADY GAIT. PATIENT STARTED ANTIHYPERTENSIVE MEDICATIONS 02/04-BLOOD PRESSURES REMAINED SOFT THIS SHIFT WITH MAP 65 OR >65. PATIENT REPORTS STILL HAVING SOME LOOSE BM'S AFTER TAKING IMMODIUM. PATIENT HAS BEEN UP MULTIPLE TIMES TO THE RESTROOM THIS SHIFT-PATIENT HAS A HARD TIME URINATING INTO HAT AND HAD SEVERAL UNMEASURED VOIDS. PATIENT DESATTING INTO THE MID 80'S WHEN SLEEPING-1LPM VIA NASAL CANNULA APPLIED TO PATIENT WITH IMPROVED SPO2. PATIENTS BED IS LOCKED IN THE LOWEST POSITION WITH CALL LIGHT IN REACH. CARE IS ONGOING.
--- NOTE | 2025-02-05 11:57 | NUR ---
ASSUMPTION OF CARE: ONLY CHANGES FROM PREVIOUS SHIFT IS PATIENT IS MORE DISTENDED. MD AWARE, AWAITING ORDERS. STILL DENIES CHEST PAIN PRESSURE OR SOB AT REST. REQUIRED OXYGEN THROUGH THE NIGHT, 1L. NO OTHER EVENTS. PLAN OF CARE CONTINUES.
[2025-02-05 12:03] VITALS: BP 102/82
[2025-02-05 13:55] LABS: PTHRP BY LC-MS/MS,PLASMA <2.0 pmol/L (0.0-3.4)
[2025-02-05 14:58] VITALS: BP 82/66
[2025-02-05 16:19] VITALS: BP 93/62
[2025-02-05 17:35] VITALS: BP 85/66
--- NOTE | 2025-02-05 18:39 | NUR ---
EOS: PATINET IS ALERT AND ORINETED ONLY CHANGE IS PATIENT HAD 2L PARACENTESIS REMOVAL, BLOOD PRESSURE DESPITE MIDODRINE STILL LESS THAN 90 UNABLE TO GIVE PROPRANOLOL. PATIENT DENIES CHEST PAIN PRESSURE OR SOB. SLEEP OXIMETRY THIS NIGHT. RT AWARE. EXTENSIVE MEDICATION EDUCATION PROVIDED. DRESSING CHANGE ON BOTH IV'S. PLAN OF CARE CONTINUES.
[2025-02-05 19:56] VITALS: BP 83/60
[2025-02-06 00:37] VITALS: BP 82/54
[2025-02-06 04:21] VITALS: BP 83/56
--- NOTE | 2025-02-06 06:04 | NUR ---
SHIFT SUMMARY: PT A&OX4 CALM AND COOPERATIVE. CONTINUES TO HAVE SOFT BPS. ASYMPTOMATIC. MAINTAINED >92% ON 1L NC WHILE SLEEPING. SLEEP OXIMETRY COMPLETED DURING SHIFT. INCONTINENCE/CONTINENCE BOWEL MOVEMENT. SBA TO BATHROOM. SMALL, LOOSE BM. NO OTHER CHANGES DURING SHIFT. WILL CONTINUE PLAN OF CARE TILL REPORT GIVEN TO DAY NURSE.
[2025-02-06 07:17] LABS: Hematocrit 27.4 % (33.0-51.0); Hemoglobin 9.0 g/dL (11.5-16.0); Mean Corpuscular HGB Conc 32.8 g/dL (31.5-36.5); Mean Corpuscular Volume 106 fL (80-100); NRBC ABSOLUTE 0.00 K/mm3 (0.00-0.02); NRBC Auto 0.0 /100 WBC (0.0-0.2); Platelet Count 216 K/mm3 (150-400); RDW Coefficient Variation 25.7 % (11.7-14.2); RDW Standard Deviation 95.6 fL (35.1-46.3)
[2025-02-06 07:38] LABS: BASOPHILS ABSOLUTE MAN 0.00 K/mm3 (0.00-0.23); BASOPHILS PERCENT MAN 0 % (0-2); EOSINOPHILS ABSOLUTE MAN 0.00 K/mm3 (0.00-0.68); EOSINOPHILS PERCENT MAN 0 % (0-6); LYMPHOCYTES ABSOLUTE MAN 1.28 K/mm3 (0.84-5.20); LYMPHOCYTES PERCENT MAN 35 % (21-46); MONOCYTES ABSOLUTE MAN 0.29 K/mm3 (0.16-1.47); MONOCYTES PERCENT MAN 8 % (4-13); NEUTROPHILS ABSOLUTE MAN 2.09 K/mm3 (1.96-9.15); SEG NEUTROPHILS PERCENT MAN 57 % (41-73)
[2025-02-06 07:39] LABS: Anion Gap 5.0 mmol/L (3-11); Blood Urea Nitrogen 13.0 mg/dL (8-24); CO2, Blood 32.0 mmol/L (21-32); Calcium, Blood 7.9 mg/dL (8.5-10.1); Chloride, Blood 102.0 mmol/L (98-108); Creatinine, Blood 0.51 mg/dL (0.40-1.00); Glucose, Blood 82.0 mg/dL (70-99); Potassium, Blood 3.3 mmol/L (3.5-5.5); Sodium, Blood 136.0 mmol/L (136-145)
[2025-02-06 08:30] VITALS: BP 93/64
[2025-02-06 12:41] VITALS: BP 103/81
--- NOTE | 2025-02-06 13:43 | NUR ---
SHIFT SUAMMARY: PATIENT REMAINS UNCHANGED FROM PREVIOUS SHIFT A/O X 4. ABLE TO MAKE NEEDS KNOWN DENIES SEVERE STOMACH PAIN, PROVIDER LOOKED AT BLE EDEAM L>R. CONTINUE TO MONITOR. BLOOD PRESSURE HOLDING WITH MIDODRINE WAS ABLE TO TAKE PROPRANOLOL. TOLERATING WALKS WITH WALKER INDEPENDENTLY. PRECISION INSTRUMENT MAKER STOPPED BY. CASE MANAGEMENT ALREADY CALLED IN REGAURDS TO NIGHT O2. JULIO'S. PATIENT AWARE. RESOURCES PROVIDED. EXTENSIVE EDUCATION ABOUT MED MANAGEMENT GIVEN. IMPROVING UNDERSTANDING. DENIES CEHST PAIN PRESSURE OR SOB AT REST.
--- NOTE | 2025-02-06 16:59 | NUR ---
EOS: NO CHANGES FROM SHIFT SUMMARY. PLAN OF CARE CONTINUES. BLOOD PRESSURE STABLE SYSTOLIC ACUTALLY INTO THE LOW 100'S, DENIES CHEST PAIN PRESSURE OR SOB AT REST. PLAN OF CARE CONTINUES.
[2025-02-06 20:08] VITALS: BP 88/62
[2025-02-06] MEDS ORDERED: Banana Flakes/Tos 1 EA Powder Pack PO SCH (21:00)
[2025-02-07] VITALS (14 sets, daily range): BP systolic 84–103; BP diastolic 41–70
[2025-02-07 04:11] LABS: BASOPHILS ABSOLUTE AUTO 0.07 K/mm3 (0.00-0.23); BASOPHILS PERCENT AUTO 2 % (0-2); EOSINOPHILS ABSOLUTE AUTO 0.04 K/mm3 (0.00-0.68); EOSINOPHILS PERCENT AUTO 1 % (0-6); Hematocrit 28.0 % (33.0-51.0); Hemoglobin 9.0 g/dL (11.5-16.0); Mean Corpuscular HGB Conc 32.1 g/dL (31.5-36.5); Mean Corpuscular Volume 108 fL (80-100); NRBC ABSOLUTE 0.00 K/mm3 (0.00-0.02); NRBC Auto 0.0 /100 WBC (0.0-0.2); Platelet Count 205 K/mm3 (150-400); RDW Coefficient Variation 25.5 % (11.7-14.2); RDW Standard Deviation 98.1 fL (35.1-46.3)
[2025-02-07 04:16] LABS: IMMATURE GRAN ABSOLUTE AUTO 0.01 K/mm3 (0.00-0.10); IMMATURE GRAN PERCENT AUTO 0 % (0-1); LYMPHOCYTES ABSOLUTE AUTO 1.52 K/mm3 (0.84-5.20); LYMPHOCYTES PERCENT AUTO 35 % (21-46); MONOCYTES ABSOLUTE AUTO 0.73 K/mm3 (0.16-1.47); MONOCYTES PERCENT AUTO 17 % (4-13); NEUTROPHILS ABSOLUTE AUTO 1.92 K/mm3 (1.96-9.15); NEUTROPHILS PERCENT AUTO 45 % (41-73)
[2025-02-07 04:32] LABS: Anion Gap 4.0 mmol/L (3-11); Blood Urea Nitrogen 15.0 mg/dL (8-24); CO2, Blood 31.0 mmol/L (21-32); Calcium, Blood 7.7 mg/dL (8.5-10.1); Chloride, Blood 103.0 mmol/L (98-108); Creatinine, Blood 0.48 mg/dL (0.40-1.00); Glucose, Blood 99.0 mg/dL (70-99); Potassium, Blood 3.2 mmol/L (3.5-5.5); Sodium, Blood 135.0 mmol/L (136-145)
--- NOTE | 2025-02-07 05:06 | NUR ---
SPOKE TO DR. TORRES REGARDING POTASSIUM OF 3.2. NO NEW ORDERS AT THIS TIME. ADVISED TO REPORT POTASSIUM LEVEL TO DAY SHIFT TEAM.
--- NOTE | 2025-02-07 06:03 | NUR ---
SHIFT SUMMARY: PT IS A&OX4 CALM AND COOPERATIVE. SOFT BPS REMAINS ASYMPTOMATIC. NSR 60-90S. MAINTAINED >92% ON 1L NC WHILE SLEEPING. INDEPENDENT IN ROOM. INCONTINENT/CONTINENT BOWEL MOVEMENT. SMALL, LOOSE STOOLS. BANANA FLAKES STARTED TODAY. POSSIUM LAB REPORTED TO RESIDENT. SEE PREVIOUS NOTE. PT C/O OF PAIN IN SHOULDER. MEDICATED PER EMAR. BED IS LOW AND LOCKED. CALLS APPROPRIATELY AND CALL LIGHT WITHIN REACH. WILL CONTINUE PLAN OF CARE TILL REPORT GIVEN TO DAY NURSE.
[2025-02-07] MEDS ORDERED: Mag Sulfate 1 GM/D5% 100ML 100 ML IV STA (09:20)
--- NOTE | 2025-02-07 16:13 | NUR ---
PT HAD A PARACENTESIS THIS AFTERNOON W/ 2L FLUID REMOVAL. ALBUMIN ORDER BY DR. MANCINI AND IS CURRENTLY INFUSING. VITAL SIGNS STABLE. PT STATES THAT THE PRESSURE IN HER ABD HAS IMPROVED.
--- NOTE | 2025-02-07 17:39 | NUR ---
END OF SHIFT SUMMARY THE PT IS A&OX4, IND IN THE ROOM, AND IS ABLE TO MAKE HER NEEDS KNOWN. ON TELE SHE HAS BEEN SR, AND BP HAS BEEN SOFT. HER MIDODRINE WAS INCREASED TO 10MG TID. BP WITH SOME IMPROVEMENT. PER DR. MANCINI, BP OKAY IF MAP >60. THE PT WAS C/O SOME RLQ PRESSURE THAT INCREASED IN DISCOMFORT WHEN TAKING DEEP BEATHS. AN ABD US WAS COMPLETED IN THE AM AND THE PT'S THIRD PARACENTESIS THIS ADMISSION TOOK PLACE THIS AFTERNOON. SEE PREVIOUS NOTE. THE PT DID HAVE SOME NAUSEA AT THE START OF THE SHIFT AND MID DAY. SHE CONTINUES TO DENY ANTIEMETICS.IN REGAURDS TO DANIEL POWERGLIDE; D/T THE PT DISCHARGING 02/08 AND PT STATING "ABRAM JUST CHANGED THE DRESSING" SHE IS REFUSING A POWERGLIDE DRESSING CHANGE. PLAN FOR PT TO DISCHARGE IN THE MORNING. HER BROTHER CAME TO BEDSIDE AND WAS UPDATED ON CARE. SEE NOTES FOR ANY UPDATES.
[2025-02-08 00:16] VITALS: BP 77/54
[2025-02-08] MEDS ORDERED: Ondansetron HCl 2 MG / ML 2ML Vial IV PRN (00:20)
--- NOTE | 2025-02-08 00:22 | NUR ---
PHYSICIAN COMMUNICATION CONTACTED DR JETT TO INFORM HIM THAT THE PATIENT IS EXPERIENCING NAUSEA AND DOES NOT HAVE ANYTHING ON THE EMAR THAT CAN BE GIVEN. ORDER OBTAINED FOR 4 MG IV ZOFRAN NEEDED EVERY SIX HOURS.
[2025-02-08 03:40] VITALS: BP 91/66
[2025-02-08 04:03] LABS: Hematocrit 25.9 % (33.0-51.0); Hemoglobin 8.7 g/dL (11.5-16.0)
[2025-02-08 04:40] LABS: Anion Gap 5.0 mmol/L (3-11); Blood Urea Nitrogen 13.0 mg/dL (8-24); CO2, Blood 31.0 mmol/L (21-32); Calcium, Blood 7.6 mg/dL (8.5-10.1); Chloride, Blood 104.0 mmol/L (98-108); Creatinine, Blood 0.54 mg/dL (0.40-1.00); Glucose, Blood 91.0 mg/dL (70-99); Potassium, Blood 3.7 mmol/L (3.5-5.5); Sodium, Blood 136.0 mmol/L (136-145)
--- NOTE | 2025-02-08 05:21 | NUR ---
SHIFT SUMMARY PATIENT ALERT AND ORIENTED X4. HAD NO COMPLAINTS OF PAIN OR SHORTNESS OF BREATH. MEDICATED PER EMAR FOR NAUSEA. ON ROOM AIR WHILE AWAKE, REQUESTS TO WEAR OXYGEN WHILE SLEEPING. VITAL SIGNS STABLE. WILL CONTINUE TO MONITOR. CALL LIGHT WITHIN REACH.
[2025-02-08 07:47] VITALS: BP 82/56
[2025-02-08 09:54] VITALS: BP 82/50
[2025-02-08] MEDS ORDERED: ABILIFY MYCITE5 M2 PO (11:26)
[2025-02-08] MEDS ORDERED: FOLI1 PO (11:27)
[2025-02-08] MEDS ORDERED: FURO20 PO (11:28)
[2025-02-08] MEDS ORDERED: EUTHYROX88 MCG PO (11:29)
[2025-02-08] MEDS ORDERED: LOPE2C PO (11:31)
[2025-02-08 11:33] VITALS: BP 88/55
[2025-02-08] MEDS ORDERED: MIDODRINE HCL10 M1 PO (11:34)
[2025-02-08] MEDS ORDERED: MULTIVITAM12 MG/15 M PO (11:41)
[2025-02-08] MEDS ORDERED: ONDA4ODT MM (11:42)
[2025-02-08] MEDS ORDERED: Percocet 5-3251 EACH PO (11:43)
[2025-02-08] MEDS ORDERED: PANT40 PO (11:44)
[2025-02-08] MEDS ORDERED: PROP10 PO (11:47)
[2025-02-08] MEDS ORDERED: LIQUICAL PLUS480 ML PO (11:48)
[2025-02-08] MEDS ORDERED: SPIR50 PO (11:57)
[2025-02-08] MEDS ORDERED: ZINC220 PO (11:58)
[2025-02-08] MEDS ORDERED: ERGO50000 PO (11:58)
[2025-02-08] MEDS ORDERED: B-1100 M1 PO (11:58)
[2025-02-08] MEDS ORDERED: ACAMPROSATE CA333 MG PO (12:36)
[2025-02-08] MEDS ORDERED: OXAYDO5 M1 PO (12:41)
--- NOTE | 2025-02-08 13:20 | NUR ---
DISCHARGE SUMMARY PT REMEAINS A&OX4, CALLED APPROPRAITELY, AND MADE HER NEEDS KNOWN. BP HAS BEEN SOFT BUT STABLE WITH MIDODRINE. SP02 >93% ON RA AND SHE CONTINUES TO DENY ANY SOB. ON TELE SHE WAS SR. PT DISCHARGED. PARACENTESIS 1 PER WEEK X3 WAS ORDERED. IMIAGING ORDER SHEET AND HARD SCRIPT WITH THE ORDER WERE FAXED TO [facility]. COPIES AND HARD SCRIPT GIVEN TO THE PT. BMP HARD SCRIPT WAS PROVIDED TO THE PT FOR BMP 02/12/25. HARD SCRIPT FOR OXYCODONE, AND ACAMPROSATE WERE GIVEN TO THE PT. ALL HARD SCRIPTS WERE COPIED AND PLACED ON THE PAPER CHART. MEDICATIONS WERE FAXED TO [facility] PER PT REQUEST. ALL BELONGING AND THE PT'S WALKER AND GLASSES WERE SENT WITH THE PT. HER IV'S WERE DISCHARGE W/O ANY ISSUES. NO FURTHER NOTES.
== END 2025-02-08 13:29 | disposition home health service (06) | DRG 432 ==
LOC: ER 13:53 → PCU 18:18 → UNDODEPER 18:20 → PCU 02-08 13:29
PROVIDERS: Emergency Medicine; Family Medicine; Physician Assistant; Student in an Organized Health Care Education/Training Program; ADMIT Internal Medicine
PROC: 30233N1 Transfusion of Nonautologous Red Blood Cells into Peripheral Vein, Percutaneous Approach (ICD-10-PCS; 2025-01-29)
PROC: 0W9G3ZX Drainage of Peritoneal Cavity, Percutaneous Approach, Diagnostic (ICD-10-PCS; principal; 2025-02-01)
DX: K70.11 Alcoholic hepatitis with ascites (principal); E43 Unspecified severe protein-calorie malnutrition; E87.1 Hypo-osmolality and hyponatremia; K76.6 Portal hypertension; J98.11 Atelectasis; J90 Pleural effusion, not elsewhere classified; N25.81 Secondary hyperparathyroidism of renal origin; Z68.1 Body mass index [BMI] 19.9 or less, adult; E87.6 Hypokalemia; K52.9 Noninfective gastroenteritis and colitis, unspecified; F41.9 Anxiety disorder, unspecified; F17.210 Nicotine dependence, cigarettes, uncomplicated; F42.9 Obsessive-compulsive disorder, unspecified; F95.2 Tourette's disorder; R54 Age-related physical debility; R13.10 Dysphagia, unspecified; D69.6 Thrombocytopenia, unspecified; E55.9 Vitamin D deficiency, unspecified; D53.9 Nutritional anemia, unspecified; I95.9 Hypotension, unspecified; E87.70 Fluid overload, unspecified; F10.20 Alcohol dependence, uncomplicated; Z79.899 Other long term (current) drug therapy; Z98.890 Other specified postprocedural states
CPT/HCPCS: 36415; 36430; 49083; 71046; 74177; 76705; 80048; 80053; 80069; 80074; 82042; 82140; 82247; 82248; 82270; 82272; 82306; 82330; 82390; 82542; 82607; 82652; 82728; 82746; 82945; 83010; 83516; 83540; 83550; 83615; 83735; 83880; 83970; 83986; 83993; 84100; 84132; 84157; 84439; 84443; 84478; 84481; 84630; 85014; 85018; 85025; 85027; 85045; 85610; 85651; 85730; 86015; 86038; 86140; 86364; 86381; 86644; 86645; 86663; 86664; 86665; 86850; 86900; 86901; 86923; 87070; 87075; 87205; 87324; 87507; 88108; 88305; 89051; 92610; 93005; 93010; 93306; 93970; 93975; 94760; 94762; 96365; 96367; 96375; 97110; 97161; 97530; 99284-25; A9270; J0612; J0696; J1171; J1650; J2405; J2470; J3411; J3475; J3480; J7030; J7050; J7060; J7120; P9016; P9047; Q9967

== ENCOUNTER 2025-03-02 10:07 | Day surgery (SDC) | payer MEDICARE ==
[~2025-03-02 10:07] MED LIST changes: +ABILIFY MYCITE5 M2 PO; +ACAMPROSATE CA333 MG PO; +B-1100 M1 PO; +ERGO50000 PO; +EUTHYROX88 MCG PO; +FOLI1 PO; +FURO20 PO; +LIQUICAL PLUS480 ML PO; +LOPE2C PO; +MIDODRINE HCL10 M1 PO; +MULTIVITAM12 MG/15 M PO; +OXAYDO5 M1 PO; +PANT40 PO; +PROP10 PO; +Percocet 5-3251 EACH PO; +SPIR50 PO; +ZINC220 PO
== END 2025-03-02 23:00 | disposition home or self-care (01) ==
LOC: US 10:07
DX: K70.11 Alcoholic hepatitis with ascites (principal)
CPT/HCPCS: 76705